=== PATIENT | male | born 1950 | race Caucasian/White ===

== ENCOUNTER 2018-12-18 07:22 | Emergency (ER) | payer SELFPAY ==
--- NOTE | 2018-12-18 07:43 | ED Physician Documentation ---
PD HPI ABD PAIN - Stated complaint Stated Complaint: ABD PAIN - Chief complaint Chief Complaint: Abd Pain - History obtained from History obtained from: Patient - History of Present Illness Timing - onset: Yesterday Timing - duration: Days (1) Timing - details: Abrupt onset, Still present Quality: Cramping, Aching, Pain Location: RUQ, Epigastric Improved by: No: Vomiting Worsened by: Eating, Moving, Palpation. No: Breathing Associated symptoms: Nausea, Vomiting. No: Fever, Diarrhea, Constipation, Dysuria, Chest pain Similar symptoms before: No diagnosis (Similar episode 2 weeks ago that lasted f or 3 days and finally improved. Interval time was without symptoms. Onset again last night and continued into today. This episode is worse pain than the prior.) Recently seen: Not recently seen Review of Systems Constitutional: reports: Myalgias. denies: Fever, Chills Nose: denies: Rhinorrhea / runny nose, Congestion Throat: denies: Sore throat Cardiac: denies: Chest pain / pressure Respiratory: denies: Cough GI: reports: Abdominal Pain, Nausea, Vomiting. denies: Abdominal Swelling, Constipation, Diarrhea, Bloody / black stool : denies: Dysuria, Frequency Skin: denies: Rash, Lesions PD PAST MEDICAL HISTORY - Past Medical History Cardiovascular: None Respiratory: None Neuro: None Endocrine/Autoimmune: None GI: None - Present Medications Home Medications: Ambulatory Orders Medication Instructions Recorded Confirmed Dicyclomine [Bentyl] 10 mg PO QID PRN #20 capsule 12/18/18 Hydrocodone/Acetaminophen [[place] 1 each PO Q6H PRN #15 tablet 12/18/18 5-325 Tablet] Ondansetron Odt [Zofran] 4 mg TL Q6H PRN #10 tablet 12/18/18 - Allergies Allergies/Adverse Reactions: Allergies Allergy/AdvReac Type Severity Reaction Status Date / Time No Known Drug Allergies Allergy Verified 12/18/18 07:38 PD ED PE NORMAL - Vitals Vital signs reviewed: Yes - General General: Alert and oriented X 3, No acute distress, Well developed/nourished - HEENT HEENT: Ears normal, Pharynx benign - Neck Neck: Supple, no meningeal sign, No adenopathy - Cardiac Cardiac: RRR, No murmur - Respiratory Respiratory: Clear bilaterally - Abdomen Abdomen: Normal bowel sounds, Soft, Non distended, No organomegaly, Other (tender epigastric to RUQ area with positive Muprhy's sign. No rebound nor percussion tenderness. ) - Male Male : Deferred - Rectal Rectal: Deferred - Back Back: No CVA TTP - Derm Derm: Normal color, Warm and dry - Neuro Neuro: Alert and oriented X 3, No motor deficit, Normal speech Results - Vitals Vitals: Vital Signs - 24 hr 12/18/18 12/18/18 12/18/18 07:34 10:00 11:11 Temperature 36.8 C Heart Rate 62 67 65 Respiratory 16 18 18 Rate Blood Pressure 164/83 H 142/75 H 123/58 L O2 Saturation 98 95 100 Oxygen O2 Source Room air - Labs Labs: Laboratory Tests 12/18/18 12/18/18 12/18/18 07:55 07:55 09:24 WBC 12.2 H RBC 4.39 L Hgb 12.3 L Hct 38.5 L MCV 87.7 MCH 28.0 MCHC 31.9 L RDW 13.3 Plt Count 209 MPV 10.0 Neut # (Auto) 10.7 H Lymph # (Auto) 0.8 L [place] # (Auto) 0.7 Eos # (Auto) 0.0 Baso # (Auto) 0.0 Absolute Nucleated RBC 0.00 Nucleated RBC % 0.0 Sodium 134 L Potassium 3.4 L Chloride 103 Carbon Dioxide 22 Anion Gap 9.0 BUN 20 Creatinine 0.6 Estimated GFR (MDRD) 135 Glucose 193 H Calcium 9.0 Total Bilirubin 1.5 H AST 21 ALT 20 Alkaline Phosphatase 70 Total Protein 7.5 Albumin 3.8 Globulin 3.7 Albumin/Globulin Ratio 1.0 Lipase 31 Urine Color YELLOW Urine Clarity CLEAR Urine pH 7.0 Ur Specific [place] 1.010 Urine Protein NEGATIVE Urine Glucose (UA) 500 H Urine Ketones NEGATIVE Urine Occult Blood NEGATIVE Urine Nitrite NEGATIVE Urine Bilirubin NEGATIVE Urine Urobilinogen 0.2 (NORMAL) Ur Leukocyte Esterase NEGATIVE Ur Microscopic Review NOT INDICATED Urine Culture Comments NOT INDICATED - Rads (name of study) RUQ abd U/S Radiology: Prelim report reviewed, Discussed with rads (gasllstone in neck with some enlarged GB, but no wall thickening nor surrounding fluid. ), See rad report PD MEDICAL DECISION MAKING - ED course Complexity details: reviewed results, re-evaluated patient (feeling better with meds. Seems GB caused. Discussed potential of meds and home versus hospital/surgery. He would prefer trying home and seeing if improves. To return if persists/worse 1-2 days. ), considered differential, d/w patient Departure - Departure Disposition: 01 Home, Self Care Clinical Impression: Colic, biliary Condition: Stable Record reviewed to determine appropriate education?: Yes Instructions: ED Gallstone W Biliary Colic [facility]: [facility] [Provider Group] Prescriptions: Dicyclomine [Bentyl] 10 mg PO QID PRN #20 capsule PRN Reason: Abdominal Pain Hydrocodone/Acetaminophen [[place] 5-325 Tablet] 1 each PO Q6H PRN #15 tablet PRN Reason: Pain Ondansetron Odt [Zofran] 4 mg TL Q6H PRN #10 tablet PRN Reason: Nausea / Vomiting Print Language: Kazakh Comments: Stay well-hydrated. Your pain seems to be coming from gallbladder irritation and spasming related to a gallstone. Avoid fatty foods for the next several days for sure and generally ongoing. Use some ibuprofen or naproxen twice daily. To that add hydrocodone as needed for pain or alternatively dicyclomine for pain to reduce spasms. Use ondansetron if needed for nausea. Return if not improved well over the next couple of days and sooner if worse. This potentially can develop more inflammation and then infection. If the symptoms improve over the next day or 2 then just stay with the low-fat diet. If you have recurring episodes of this, you can make an appointment with the surgical center to discuss possible gallbladder removal surgery. If you have unrelieved pain or worsening the next couple of days, then return here for potential gallbladder surgery sooner. Discharge Date/Time: 12/18/18 11:12
[2018-12-18 08:08] LABS: BASOPHILS % (AUTO) 0.2 %; HGB - HEMOGLOBIN 12.3 g/dL (14.0-18.0); LYMPHOCYTES # (AUTO) 0.8 10^3/uL (1.5-3.5); LYMPHOCYTES % (AUTO) 6.6 %; MEAN CORPUSCULAR HGB CONC 31.9 g/dL (32.0-36.0); MEAN CORPUSCULAR VOLUME 87.7 fL (80.0-94.0); MONOCYTES # (AUTO) 0.7 10^3/uL (0.0-1.0); MONOCYTES % (AUTO) 5.3 %; NEUTROPHILS # (AUTO) 10.7 10^3/uL (1.5-6.6); NEUTROPHILS % (AUTO) 87.4 %; PLT - PLATELET COUNT 209 10^3/uL (130-450); RED BLOOD COUNT 4.39 10^6/uL (4.70-6.10); RED CELL DISTRIBUTION WIDTH 13.3 % (12.0-15.0); WHITE BLOOD COUNT 12.2 x10^3/uL (4.8-10.8)
[2018-12-18] MEDS ORDERED: ONDANSETRON 4 MG/2 ML VIAL IVP STA (08:14)
[2018-12-18] MEDS ORDERED: SODIUM CHLORIDE 0.9% 1,000 ML IV ONE (08:14)
[2018-12-18] MEDS ORDERED: LIDOCAINE VISCOUS 2% 15 ML UDC MM STA (08:14)
[2018-12-18] MEDS ORDERED: MORPHINE 2 MG/ML CARPUJECT IVP STA (08:14)
[2018-12-18] MEDS ORDERED: MAG HYDROX/AL HYDROX/SIMETH 30 ML UDC PO STA (08:15)
[2018-12-18 08:21] LABS: ALBUMIN 3.8 g/dL (3.2-5.5); BILIRUBIN,TOTAL 1.5 mg/dL (0.2-1.0); CREATININE 0.6 mg/dL (0.6-1.2); TOTAL PROTEIN 7.5 g/dL (6.7-8.2)
[2018-12-18 09:27] LABS: BILIRUBIN,URINE NEGATIVE (NEGATIVE); GLUCOSE, URINE (UA) 500 mg/dL (NEGATIVE); KETONES,URINE (UA) NEGATIVE (NEGATIVE); LEUKOCYTE ESTERASE, URINE NEGATIVE (NEGATIVE); NITRITE,URINE NEGATIVE (NEGATIVE); OCCULT BLOOD,URINE NEGATIVE (NEGATIVE); PROTEIN,URINE NEGATIVE (NEGATIVE); UROBILINOGEN,URINE 0.2 (NORMAL) E.U./dL (NORMAL)
[2018-12-18 09:29] LABS: CLARITY,URINE CLEAR (CLEAR)
--- NOTE | 2018-12-18 09:36 | Ultrasound Report ---
Reason: upper abd pain, onset last night;similar 3 wks ago Procedure Date: 12/18/2018 Accession Number: [id number] / [id number] Procedure: US - Abdomen Limited CPT Code: FULL RESULT: EXAM: ABDOMEN ULTRASOUND LIMITED, RUQ EXAM DATE: 12/18/2018 08:44 AM. CLINICAL HISTORY: Upper abdominal pain, onset last night; similar 3 weeks ago. COMPARISON: None. TECHNIQUE: Real-time scanning was performed with static images obtained. FINDINGS: Liver: Liver parenchyma is heterogeneous and echogenic which limits evaluation for underlying mass. In the right lobe of the liver a 0.9 cm simple appearing cyst is identified. The liver measures at least 12.9 cm. Main portal vein flow: Hepatopetal. Gallbladder: Gallbladder contains a nonmobile 2.5 cm calculus near the neck and is tender during the ultrasound examination, positive sonographic Britt's sign. There is no pericholecystic fluid or gallbladder wall thickening. The gallbladder is mildly distended. Biliary System: CBD measures 6 mm. No intrahepatic or extrahepatic ductal dilatation. Other: Right kidney measures 10.3 cm in maximal sagittal dimension and demonstrates no hydronephrosis. Subcentimeter simple appearing cysts are seen in the upper and lower poles of the right kidney. IMPRESSION: Distended gallbladder with calculus in the gallbladder neck and positive sonographic Britt sign meet ultrasound criteria for cholecystitis. Please note that there is no pericholecystic fluid or overt gallbladder wall thickening to suggest advanced cholecystitis at this time. JACQUE The call report notification system was initiated by Dr. Barrington Reddy at 09:34 AM on 12/18/2018. The above call report findings were discussed with Adrián Anne by Dr. Barrington Reddy at 09:38 AM on 12/18/2018.
[2018-12-18] MEDS ORDERED: KETOROLAC 30 MG/ML VIAL IVP STA (09:54)
[2018-12-18] MEDS ORDERED: HYDROmorphone 2 MG/ML VIAL IVP STA (09:54)
[2018-12-18 11:12] VITALS: BP 123/58
== END 2018-12-18 11:12 | disposition home or self-care (01) ==
LOC: ED 07:22
DX: K80.20 Calculus of gallbladder without cholecystitis without obstruction (principal)
CPT/HCPCS: 36415; 76705; 80053; 81003; 83690; 85025; 96361; 96374; 96375; 99283; A9270; J1170; 81001; 87086

== ENCOUNTER 2018-12-22 08:19 | Observation (INO) | payer SELFPAY ==
--- NOTE | 2018-12-22 08:47 | ED Physician Documentation ---
History of Present Illness - Stated complaint Stated Complaint: FEVER,HEADACHE,ABD PX - Chief complaint Chief Complaint: Abd Pain - History obtained from History obtained from: Patient - Additonal information Additional information: Patient is a 68-year-old male presenting with persistent right upper quadrant abdominal pain, and headache. Patient was seen here several days ago and diagnosed with gallstones and biliary colic. Patient has been taking his prescriptions including narcotic pain medication and Zofran with mild relief. Patient denies any recurrent nausea, vomiting, urinary changes, or stool changes. Patient is unclear as if he has followed up with primary care physician. Patient admits to not having insurance and having difficulty establishing care locally.Patient is also unclear if he has changed his diet.No other improving or worsening factors noted. Review of Systems Constitutional: reports: Fever, Chills GI: reports: Abdominal Pain. denies: Nausea, Vomiting, Diarrhea : denies: Dysuria Neurologic: reports: Headache PD PAST MEDICAL HISTORY - Past Medical History Cardiovascular: None Respiratory: None Neuro: None Endocrine/Autoimmune: None GI: None - Past Surgical History Past Surgical History: No - Present Medications Home Medications: Ambulatory Orders Medication Instructions Recorded Confirmed Dicyclomine [Bentyl] 10 mg PO QID PRN #20 capsule 12/18/18 Hydrocodone/Acetaminophen [[place] 1 each PO Q6H PRN #15 tablet 12/18/18 5-325 Tablet] Ondansetron Odt [Zofran] 4 mg TL Q6H PRN #10 tablet 12/18/18 - Allergies Allergies/Adverse Reactions: Allergies Allergy/AdvReac Type Severity Reaction Status Date / Time No Known Drug Allergies Allergy Verified 12/18/18 07:38 - Social History Does the pt smoke?: No Smoking Status: Never smoker - Immunizations Immunizations are current?: No PD ED PE NORMAL - Vitals Vital signs reviewed: Yes - General General: Alert and oriented X 3, No acute distress, Well developed/nourished - HEENT HEENT: Atraumatic, Moist mucous membranes - Cardiac Cardiac: RRR, No murmur - Respiratory Respiratory: No respiratory distress, Clear bilaterally - Abdomen Abdomen: Soft, Non distended. No: Non tender (Mild RUQ tenderness with positive Britt's, no guarding or rebound) - Derm Derm: Normal color, Warm and dry, No rash - Extremities Extremities: No deformity, No tenderness to palpate - Neuro Neuro: Alert and oriented X 3, No motor deficit, No sensory deficit - Psych Psych: Normal mood, Normal affect Results - Vitals Vitals: Vital Signs - 24 hr 12/22/18 12/22/18 08:39 11:23 Temperature 37.3 C 37.7 C H Heart Rate 82 61 Respiratory 18 14 Rate Blood Pressure 114/86 H 113/75 O2 Saturation 97 98 Oxygen O2 Source Room air - Labs Labs: Laboratory Tests 12/22/18 12/22/18 12/22/18 09:13 09:13 09:25 WBC 12.0 H RBC 3.97 L Hgb 11.3 L Hct 34.2 L MCV 86.1 MCH 28.5 MCHC 33.0 RDW 13.5 Plt Count 153 MPV 10.3 Neut # (Auto) 10.7 H Lymph # (Auto) 0.6 L [place] # (Auto) 0.5 Eos # (Auto) 0.0 Baso # (Auto) 0.0 Absolute Nucleated RBC 0.00 Nucleated RBC % 0.0 Sodium 130 L Potassium 3.2 L Chloride 99 L Carbon Dioxide 21 Anion Gap 10.0 BUN 17 Creatinine 0.7 Estimated GFR (MDRD) 113 Glucose 141 H Calcium 8.5 Total Bilirubin 1.5 H AST 40 ALT 45 Alkaline Phosphatase 138 H Total Protein 6.8 Albumin 3.1 L Globulin 3.7 Albumin/Globulin Ratio 0.8 L Lipase 25 Urine Color DARK YELLOW Urine Clarity CLEAR Urine pH 6.5 Ur Specific [place] 1.025 Urine Protein 100 H Urine Glucose (UA) 100 H Urine Ketones NEGATIVE Urine Occult Blood MODERATE H Urine Nitrite NEGATIVE Urine Bilirubin NEGATIVE Urine Urobilinogen >=8.0 H Ur Leukocyte Esterase NEGATIVE Urine RBC 0-5 Urine WBC 0-3 Ur Squamous Epith Cells NONE SEEN Urine Bacteria None Seen Urine Mucus Moderate Strands Ur Microscopic Review INDICATED Urine Culture Comments NOT INDICATED PD MEDICAL DECISION MAKING - ED course Complexity details: reviewed old records, reviewed results, re-evaluated patient, considered differential, d/w patient, d/w informatics consultant ED course: Patient presenting with right upper quadrant pain and other symptoms that are concerning for acute cholecystitis. Patient was seen several days ago and noted to have cholelithiasis and biliary colic. Feel less likely the patient is experiencing pancreatitis, liver disease, appendicitis, choledocholithiasis, ascending cholangitis, AAA, small bowel obstruction, diverticulitis, renal disease, UTI, but considered. Patient received IV fluids, but did not require medications while in the ED. Screening lab work obtained which is relatively similar to previous labs several days ago. Leukocytosis is similar at 12 and total bilirubin is similar 1.5. Alkaline phosphatase is doubled. Patient remains afebrile in the ED. Did briefly speak to patient access and social work regarding establishing follow-up and primary care for this patient and patient provided with primary care information and outpatient appointment scheduled for later in December. Ultrasound returned indicating possible dilated common bile duct and acute cholecystitis with cholelithiasis. At this time, feel the patient may be experiencing acute cholecystitis refractory to outpatient therapies. Discussed with general surgery, who evaluated patient in the ED and feels surgical intervention is appropriate. Patient is amenable to surgical intervention at this time. Departure - Departure Disposition: ED Transfer to [facility] Clinical Impression: Cholecystitis Condition: Fair
[2018-12-22] MEDS ORDERED: SODIUM CHLORIDE 0.9% 1,000 ML IV ONE (09:07)
[2018-12-22 09:18] LABS: BASOPHILS % (AUTO) 0.3 %; EOSINOPHILS % (AUTO) 0.2 %; HGB - HEMOGLOBIN 11.3 g/dL (14.0-18.0); LYMPHOCYTES # (AUTO) 0.6 10^3/uL (1.5-3.5); LYMPHOCYTES % (AUTO) 5.2 %; MEAN CORPUSCULAR HEMOGLOBIN 28.5 pg (27.0-31.0); MEAN CORPUSCULAR VOLUME 86.1 fL (80.0-94.0); MEAN PLATELET VOLUME 10.3 fL (7.4-11.4); MONOCYTES # (AUTO) 0.5 10^3/uL (0.0-1.0); MONOCYTES % (AUTO) 4.3 %; NEUTROPHILS # (AUTO) 10.7 10^3/uL (1.5-6.6); NEUTROPHILS % (AUTO) 89.5 %; PLT - PLATELET COUNT 153 10^3/uL (130-450); RED BLOOD COUNT 3.97 10^6/uL (4.70-6.10); RED CELL DISTRIBUTION WIDTH 13.5 % (12.0-15.0)
[2018-12-22 09:31] LABS: ALBUMIN 3.1 g/dL (3.2-5.5); BILIRUBIN,TOTAL 1.5 mg/dL (0.2-1.0); CALCIUM 8.5 mg/dL (8.5-10.3); CREATININE 0.7 mg/dL (0.6-1.2); TOTAL PROTEIN 6.8 g/dL (6.7-8.2)
[2018-12-22 09:32] LABS: ALBUMIN/GLOBULIN RATIO 0.8 (1.0-2.2)
[2018-12-22 09:40] LABS: GLUCOSE, URINE (UA) 100 mg/dL (NEGATIVE); KETONES,URINE (UA) NEGATIVE (NEGATIVE); LEUKOCYTE ESTERASE, URINE NEGATIVE (NEGATIVE); NITRITE,URINE NEGATIVE (NEGATIVE); OCCULT BLOOD,URINE MODERATE (NEGATIVE); PH,URINE 6.5 PH (5.0-7.5); PROTEIN,URINE 100 mg/dL (NEGATIVE); UROBILINOGEN,URINE >=8.0 E.U./dL (NORMAL)
[2018-12-22 09:52] LABS: BILIRUBIN,URINE NEGATIVE (NEGATIVE); CLARITY,URINE CLEAR (CLEAR); ICTOTEST,URINE NEGATIVE
[2018-12-22 09:53] LABS: BACTERIA,URINE None Seen /HPF (None Seen); MUCUS,URINE Moderate Strands; RBC,URINE 0-5 /HPF (0-5); SQUAMOUS EPITHELIAL CELL,UR NONE SEEN (<= Few)
--- NOTE | 2018-12-22 10:57 | Ultrasound Report ---
Reason: RUQ pain, history of recent gallstones Procedure Date: 12/22/2018 Accession Number: [id number] / [id number] Procedure: US - Abdomen Limited CPT Code: FULL RESULT: EXAM: ABDOMEN ULTRASOUND LIMITED, RUQ EXAM DATE: 12/22/2018 10:37 AM. CLINICAL HISTORY: RUQ pain, history of recent gallstones. COMPARISON: Right upper quadrant ultrasound 12/18/2018. TECHNIQUE: Real-time scanning was performed with static images obtained. FINDINGS: Liver: Stable mildly coarse echotexture and increased echogenicity. Right lobe 17.4 cm. A stable 1 cm right hepatic simple cysts. No other focal lesion identified. Main portal vein flow: Hepatopetal. Gallbladder: A nonmobile gallstone up to 3 cm in maximal diameter in the body/fundus. Small amount of irregular nonshadowing intraluminal debris/sludge. Interval irregular gallbladder wall thickening with hyperemia on color Doppler measuring at least 6 mm in thickness. Positive sonographic Britt sign. No pericholecystic fluid identified. Biliary System: No intrahepatic biliary dilatation identified. Limited visibility of extrahepatic ducts due to bowel gas. CHD 3.6 mm. Visualized proximal CBD likely measures up to 9 mm, previously 6 mm. Pancreas: Not well seen due to body habitus and bowel gas. Right kidney: 11 cm in length, without hydronephrosis. Other: No free fluid evident. IMPRESSION: 1. Acute cholecystitis associated with cholelithiasis. 2. Possible mildly dilated partially visualized proximal CBD. No intrahepatic ductal dilatation. 3. Mild hepatic steatosis. 4. Pancreas not well seen. RADIA
--- NOTE | 2018-12-22 13:23 | ANESTHESIA ---
Pre-Anesthesia VS, & Labs - Diagnosis acute cholecystitis - Procedure lap lori Vital Signs: Temp Pulse Resp BP Pulse Ox 37.7 C H 61 14 113/75 98 12/22/18 11:23 12/22/18 11:23 12/22/18 11:23 12/22/18 11:23 12/22/18 11:23 Height 5 ft 3.5 in Weight (kg) 73.028 kg Body Mass Index 28.0 - NPO Last Food Intake: 0700 - Lab Results Current Lab Results: Laboratory Tests 12/22/18 09:13: Sodium 130 L, Potassium 3.2 L, Chloride 99 L, Carbon Dioxide 21, Anion Gap 10.0, BUN 17, Creatinine 0.7, Estimated GFR (MDRD) 113, Glucose 141 H, Calcium 8.5, Total Bilirubin 1.5 H, AST 40, ALT 45, Alkaline Phosphatase 138 H, Total Protein 6.8, Albumin 3.1 L, Globulin 3.7, Albumin/Globulin Ratio 0.8 L, Lipase 25 12/22/18 09:13: WBC 12.0 H, RBC 3.97 L, Hgb 11.3 L, Hct 34.2 L, MCV 86.1, MCH 28.5, MCHC 33.0, RDW 13.5, Plt Count 153, MPV 10.3, Neut # (Auto) 10.7 H, Lymph # (Auto) 0.6 L, [place] # (Auto) 0.5, Eos # (Auto) 0.0, Baso # (Auto) 0.0, Absolute Nucleated RBC 0.00, Nucleated RBC % 0.0 Fish Bones: 12/22/18 09:13 12/22/18 09:13 Home Medications and Allergies dicyclomine vicodine Allergies/Adverse Reactions: Allergies Allergy/AdvReac Type Severity Reaction Status Date / Time No Known Drug Allergies Allergy Verified 12/18/18 07:38 Anes History & Medical History - Anesthetic History Anesthesia Complications: reports: No previous complications - Medical History Cardiovascular: reports: None Pulmonary: reports: None Gastrointestinal: reports: None Urinary: reports: None Neuro: reports: None Musculoskeletal: reports: None Endocrine/Autoimmune: reports: None Blood Disorders: reports: None Smoking Status: Never smoker Psychosocial: reports: No issues indicated Exam General: Alert, Oriented x3, Cooperative, No acute distress Dental: Poor dentition Mouth Openin Fingerbreadth Neck Mobility: Normal Mallampati classification: II Thyromental Distance: greater than 6 cm Respiratory: Lungs clear, Normal breath sounds, No respiratory distress, No accessory muscle use Cardiovascular: Regular rate, Normal S1, Normal S2, No murmurs Mental/Cognitive Status: Alert/Oriented X3, Normal for patient Plan Anesthesia Type: General Consent for Procedure(s) Verified and Reviewed: Yes Code Status: Attempt Resuscitation ASA classification: 2-Mild systemic disease Is this case an emergency?: No
[2018-12-22] MEDS ORDERED: BUPIVACAINE 0.5% PF 10 ML VIAL ONE (13:34)
--- NOTE | 2018-12-22 14:03 | CONSULTATION NOTE ---
Referring Provider Name of Referring Provider:: Dr. Torres Consult Date: 12/22/18 Chief Complaint - Chief Complaint Chief Complaint: Sharp postprandial right upper quadrant pain History of Present Illness - Admitted From Admitted From:: Not admittedoutpatient - History Obtained From Records Reviewed: Yes History obtained from: Patient, Dr. Torres, chart Exam Limitations: Patient is primarily Indonesian-speaking but speaks Dutch quite well - History of Present Illness HPI Comment/Other: Patient is a primarily Indonesian speaking 68-year-old male who is had a several week history of on again off again right upper quadrant pain particularly after eating fatty meals. This is been associated with nausea but no vomiting. He denies melena, hematochezia, hematemesis. His Dutch is actually quite good but he states that this manages significantly better. He has not had any ongoing weight loss. He was diagnosed with symptomatic cholelithiasis by Dr. Anne in this emergency department but sent home with a plan to follow-up for an elective cholecystectomy. Unfortunately, his gallbladder did not cooperate. He presents to emergency department with worsening right upper quadrant pain. History - Past Medical History Cardiovascular: reports: None Respiratory: reports: None Neuro: reports: None Endocrine/Autoimmune: reports: None GI: reports: None : reports: None Musculoskeletal: reports: None MRSA Hx?: No Meds/Allgy - Home Medications Home Medications: Ambulatory Orders Medication Instructions Recorded Confirmed Dicyclomine [Bentyl] 10 mg PO QID PRN #20 capsule 12/18/18 12/22/18 Hydrocodone/Acetaminophen [[place] 1 each PO Q6H PRN #15 tablet 12/18/18 12/22/18 5-325 Tablet] Ondansetron Odt [Zofran] 4 mg TL Q6H PRN #10 tablet 12/18/18 12/22/18 - Allergies Allergies/Adverse Reactions: Allergies Allergy/AdvReac Type Severity Reaction Status Date / Time No Known Drug Allergies Allergy Verified 12/18/18 07:38 Review of Systems - Constitutional Constitutional: denies: Fatigue - Eyes Eyes: denies: Pain - Ears, Nose & Throat Ears, Nose & Throat: denies: Ear pain - Cardiovascular Cariovascular: denies: Irregular heart rate, Chest pain - Respiratory Respiratory: denies: Cough - Gastrointestinal Gastrointestinal: reports: Abdominal pain, Nausea. denies: Rectal bleeding, Black stools, Bloody stools, Vomiting - Neurological Neurological: denies: General weakness, Focal weakness Exam - Vital Signs Reviewed Vital Signs: Yes Vital Signs: Vital Signs x48h Temp Pulse Resp BP Pulse Ox 12/22/18 11:23 37.7 C H 61 14 113/75 98 12/22/18 08:39 37.3 C 82 18 114/86 H 97 - Physical Exam General Appearance: positive: No acute distress Eyes Bilateral: positive: No lid inflammation, Conjunctivae nml, No scleral icterus ENT: positive: Dry mucous membranes Neck: positive: Trachea midline Respiratory: positive: Chest non-tender, No respiratory distress, Breath sounds nml Cardiovascular: positive: Regular rate & rhythm Abdomen: positive: Nml bowel sounds, No distention (But obese.), Tenderness (And right upper quadrant without significant peritoneal findings.) Extremities: positive: Non-tender, Full ROM, Nml appearance Neurologic/Psychiatric: positive: Oriented x3, Motor nml, Sensation nml, Mood/affect nml Conclusion/Plan - Diagnosis Diagnosis: Symptomatic cholelithiasisacute cholecystitis - Plan Plan: Laparoscopic cholecystectomy, possible open cholecystectomy, possible intraoperative cholangiogram, possible common bile duct exploration. The indications, procedure, alternatives including no surgery, possible risks including infection (deep or superficial), bleeding requiring transfusion (with all of its risks), common bile duct injury and were fully explained to the patient and all questions answered. I explained that following the surgery I did not want him lifting anything over 15 pounds for 6 weeks to allow for optimal healing and to decrease the likelihood that a hernia would occur. All questions were fully answered. Verbal and written consent was obtained. The patient, in preparation for surgery will be nothing by mouth, receive a soap and water shower, and receive 2 g of Ancef with induction. I asked him to contact me with any surgical questions and his concerns and he stated that he would. I asked him to let me know if there is any way we can make his say at [facility] more comfortable and he stated that he would let me know. 45 minutes of [id number] time spent with the patient, the majority of which was spent in discussion, coordination of care, and completion of the requisite paperwork Josette disclaimer: This document was created in part using voice recognition technology. Because of the inherent limitations of the system ([employer] user manual states that the licensee understands that speech recognition is a statistical process and that recognition errors are inherent in the process), occasional same sounding word substitutions and grammatical errors do occur and persist yoko pite proofreading. Please read this document for context. - Lab Results Lab results reviewed: Yes Fish Bones: 12/22/18 09:13 12/22/18 09:13 - Diagnostic Imaging Results Diagnostic Imaging Results: positive: Final report reviewed
[2018-12-22] MEDS ORDERED: cefOXitin 2 GM VIAL IV ONE (14:12)
[2018-12-22] MEDS ORDERED: BUPIVACAINE 0.5% PF 30 ML VIAL INFIL ONE (14:21)
[2018-12-22] MEDS ORDERED: LACTATED RINGERS 1,000 ML IV ONE ×2 (14:23→15:15)
[2018-12-22] MEDS ORDERED: IOTHALAMATE MEGLUMINE 50 ML VIAL ONE (15:29)
[2018-12-22] MEDS ORDERED: ROCURONIUM 50 MG/5 ML VIAL IVP ONE (17:29)
[2018-12-22] MEDS ORDERED: fentaNYL 250 MCG/5 ML VIAL IVP ONE (17:29)
[2018-12-22] MEDS ORDERED: GLYCOPYRROLATE 1 MG/5 ML VIAL IVP ONE (17:29)
[2018-12-22] MEDS ORDERED: DEXAMETHASONE 4 MG/ML VIAL IVP ONE (17:29)
[2018-12-22] MEDS ORDERED: ONDANSETRON 4 MG/2 ML VIAL IVP ONE (17:29)
[2018-12-22] MEDS ORDERED: SUCCINYLCHOLINE 200 MG/10 ML VIAL IVP ONE (17:29)
[2018-12-22] MEDS ORDERED: MIDAZOLAM 2 MG/2 ML VIAL IVP ONE (17:29)
[2018-12-22] MEDS ORDERED: NEOSTIGMINE 1 MG/1 ML 10 ML MDV IVP ONE (17:29)
[2018-12-22] MEDS ORDERED: PROPOFOL 200 MG/20 ML VIAL IVP ONE (17:29)
[2018-12-22] MEDS: fentaNYL 100 MCG/2 ML VIAL ONE ×2 (17:55→18:03)
--- NOTE | 2018-12-22 18:09 | XRAY Report ---
Reason: Cholangiogram Procedure Date: 12/22/2018 Accession Number: [id number] / [id number] Procedure: [place] - OR Cholangiogram CPT Code: FULL RESULT: EXAM: INTRAOPERATIVE CHOLANGIOGRAM EXAM DATE: 12/22/2018 05:33 PM. CLINICAL HISTORY: Cholangiogram. COMPARISONS: None. TECHNIQUE: Dr. Wray performed the procedure. Please see the operative notes for details. Fluoroscopy Time: 1 minute. Number of Images: 5. FINDINGS IMPRESSION: Fluoroscopy for procedural guidance. Please refer to operative note for details. RADIA
[2018-12-22] MEDS ORDERED: SODIUM CHLORIDE FLUSH 0.9% 10 ML SYRINGE IVP PRN (18:14)
[2018-12-22] MEDS ORDERED: ONDANSETRON 4 MG/2 ML VIAL IVP PRN (18:14)
--- NOTE | 2018-12-22 18:26 | OPERATIVE REPORT ---
Operative Report - General Admit Date: 12/22/18 Planned Procedure: Laparoscopic cholecystectomy, possible open cholecystectomy, possible intraoperative cholangiogram, possible common bile duct exploration Pre-Op Diagnosis: Symptomatic cholelithiasis-acute cholecystitis Procedure Performed: Laparoscopic cholecystectomy converted to open cholecystectomy for apparent common bile duct injury, intraoperative cholangiogram, repair common bile duct injury Intraoperative surgical consultation for assist Dr. 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 - Procedure Note Primary Surgeon: Adrián Wray MD Secondary Surgeon: Yen Boykin MD Anesthesia Provider: Tessa Sims CRNA Anesthesia Technique: General ET tube, Local (30 mL of half percent Marcaine) IV Fluids (mL): 1,500 Estimated Blood Loss (mL): 400 Drain/Tube Type: Iggy drain (19 Yi Iggy drain in the subhepatic space) Findings: Aberrant common bile duct anatomy (see intraoperative cholangiogram) Complications: Small hole in the common bile duct wall - Other Other Information/Narrative: OPERATIVE DESCRIPTION/REPORT: After verbal and written informed consent was obtained detailing the risks of infection, bleeding requiring transfusion with its risks, nerve injury, and , as well as the possibility of a colostomy, and after I met with the patient confirming the surgery, the patient was brought to the operative suite and placed supine on the operating table. Great care was taken to avoid pressure points to prevent pressure necrosis or nerve injury. Monitoring devices were applied along with TEDs and pneumatic compressive stockings (to prevent DVT). The patient received preoperative antibiotics for surgical prophylaxis. Jigar Sims CRNA sedated and anesthetized the patient for the entire procedure. The patient was prepped and draped in the usual sterile manner. A "time in" then confirmed that the patient was identified with 3 identifiers (name, date and medical record number), the history and physical was in the chart, the signed consent confirming the procedure was in the chart, the patient was in the correct position, the aforementioned prophylactic measures were in place or given, we had the correct personnel and equipment to complete the procedure and that anesthesia, surgery and nursing were given an opportunity to express any concerns. With the agreement of everyone in the room, we proceeded with the operation. The initial incision was at the umbilicus and dissection to the linea alba was completed using blunt dissection. The linea alba was grasped with a Callie and incised. In a similar manner the peritoneum was grasped and incised using Metzenbaum scissors. In this location, a 12 mm blunt tipped, balloon tipped port was placed and the balloon was inflated to keep the port in position. The abdominal cavity was insufflated with carbon dioxide to steady-state pressure of 15 mmHg. Three additional 5 mm ports were placed in standard location for laparoscopic cholecystectomy (subxiphoid and 2 right subcostal) under direct vision of the 30 degree laparoscope and without incident. The patient was then placed in reverse Trendelenburg position and was rotated slightly to their left. Markedly dense adhesions of the omentum to the gallbladder and underside of the liver were encountered. These were taken down with traction countertraction aiding the dissection with Bovie electrocautery. Once the body of the gallbladder could clearly be seen I tried to grasp it with Prestige graspers but it was too thick walled and too distended to grasp. A laparoscopic needle was inserted into the gallbladder and the gallbladder was decompressed. Even with the decompression, the gallbladder wall was exceedingly and Prestige graspers did not allow for the best purchase on the wall. Toothed graspers had to be used. The gallbladder was then retracted anteriorly and superiorly and the dissection continued towards the infundibulum. The dissection was extraordinarily difficult and hampered by dense adhesions. The duodenum was dissected off of the gallbladder using traction and countertraction as well as sweeping the duodenum down away from the gallbladder. The cystic duct was identified and slightly posterior and medial to the cyst duct the cystic artery was found. The artery was addressed first and was doubly clipped proximally and distally and transected. Additional dissection also showed the entrance of the cystic duct into the common bile duct. This was done to ensure that we obtained the critical view and did not injure the common bile duct. Once this was clearly seen, the cystic duct was doubly clipped proximally and distally and transected. With the cystic duct and artery addressed and transected I proceeded to dissect the gallbladder from the liver bed and from additional adhesions with laparoscopic cristhian due to the dense adhesions. Laterally, during the dissection a small hole was made into what clearly was a bile containing ductal structure. Immediately this prompted concern and me as the common bile duct could clearly be seen and the cystic duct was clearly seen. The location of the ductal structure was clearly anomalous and not easily explained. As such, it was incumbent upon me to obtain an intraoperative cholangiogram to define the anatomy and the injury. At this point I called for an intraoperative assistance by my partner Dr. Yen Boykin and she was kind enough to promptly come to the operating room and assist for the remainder of the case. This was attempted laparoscopically but due to its location, posteriorly and close to the liver, there was no good way to obstruct the leak of dye from the opening during the cholangiogram and the initial laparoscopic intraoperative cholangiogram was nondiagnostic. It was now clear that I would need to convert to an open procedure and a right subcostal incision was made encompassing the three 5 mm laparoscopic incisions. While my scrub nurse was obtaining the required equipment, I closed the fascia at the umbilicus using 2 [id number] 0 Vicryl sutures. The skin incision was taken down to the anterior fascia using the scalpel. The anterior fascia was incised using Bovie electrocautery and the rectus muscle was held away from the posterior fascia using a Musa clamp and incised using Bovie electrocautery. Small muscle bleeders were controlled using bovie electrocautery. The posterior fascia was incised using Bovie electrocautery and entry was gained into the abdomen without incident. This was then lengthened to the size if the skin incision using Bovie electrocautery. The gallbladder was removed from the liver bed primarily using traction and countertraction and bleeding was controlled using Bovie electrocautery. The gallbladder was sent for pathologic evaluation. This allowed me to evaluate the anatomy without the gallbladder in the way. A Fisk retractor was placed to aid in visualization. A lap sponge was placed in the gallbladder bed to aid with hemostasis. The anatomy did not look any different than it did laparoscopically but the difference with the patient open was the fact that now I could close the bile duct injury which upon visualization appeared to be a small opening in the wall of the ductal structure and not a transection. The injury was closed using 2 simple 4-0 Vicryl sutures. The clips on the cystic duct were removed and a cholangiocatheter was inserted into the cystic duct and a clip was used to hold it in place. A cholangiogram was then obtained that showed clear flow of the contrast both proximally into the liver ducts and distally into the duodenum. There was no obstruction of flow. There were no filling defects. And importantly, there was no leak of contrast from the closed bile duct injury. Also interesting was that the anatomy of the common bile duct was clearly aber rant with a "Z" pattern. This x-ray was kept to be evaluated. Now with this information, the liver bed was examined for persistent blood or bile leaks. Small bleeding sites were cauterized using Bovie electrocautery and for insurance Surgicel was obtained packed into the gallbladder bed. A 19 Yi Iggy drain was obtained and inserted through a separate stab incision in the right lower abdomen securing it to the skin using a 3-0 nylon which was Braeden sandaled about the drain. The drain was cut to fit and placed in the subhepatic space. The right upper quadrant was copiously irrigated with saline and the operative field was examined for persistent blood or bile leaks of which there were none. The posterior fascia was approximated using a 0 PDS in a running fashion, starting laterally and running to the middle where the stitch was tied. In the exactly similar manner the anterior fascia was approximated. I then injected the fasica and the skin with a total of 30 mL of 1/2% marcaine for help in controlling the postoperative pain. The skin was approximated using skin kesha at both incisions. The surgical prep was removed. Dressings were applied. The drain was placed to grenade suction. At this point a time out was performed that confirmed that all the counts were correct, the procedure that was performed, the blood loss, the urine output, the IV fluids administered, and the patients condition. Having tolerated the procedure well, the patient was subsequently extubated and taken to recovery room in good and stable condition. [employer] disclaimer: This document was created in part using voice recognition technology. Because of the inherent limitations of the system ([employer] user manual states that the licensee understands that speech recognition is a statistical process and that recognition errors are inherent in the process), occasional same sounding word substitutions and grammatical errors do occur and persist despite proofreading. Please read this document for context.
[2018-12-22] MEDS: HYDROmorphone 0.5 MG/0.5 ML SYRINGE IVP PRN ×3 (18:53→23:46)
[2018-12-22] MEDS: PANTOPRAZOLE 40 MG TABLET PO SCH (18:53)
[2018-12-22] MEDS: DEXTROSE 5%-0.9% NACL 1,000 ML IV SCH (18:53)
[2018-12-22] MEDS: HYDROcod/ACETAM 5/325 MG TABLET PO PRN (20:37)
[2018-12-22] MEDS: PIPERACILLIN/TAZOBACTAM 3.375 GM in SODIUM CHLORIDE 0.9% MINIBAG 100 ML IV SCH (23:48)
[2018-12-23] MEDS: SODIUM CHLORIDE FLUSH 0.9% 10 ML SYRINGE IVP SCH ×3 (00:06→18:51)
[2018-12-23] MEDS: HYDROmorphone 0.5 MG/0.5 ML SYRINGE IVP PRN (04:41)
[2018-12-23] MEDS: DEXTROSE 5%-0.9% NACL 1,000 ML IV SCH ×2 (04:41→15:26)
[2018-12-23 05:58] LABS: BASOPHILS % (AUTO) 0.2 %; EOSINOPHILS % (AUTO) 0.1 %; HGB - HEMOGLOBIN 9.9 g/dL (14.0-18.0); LYMPHOCYTES # (AUTO) 0.7 10^3/uL (1.5-3.5); LYMPHOCYTES % (AUTO) 6.7 %; MEAN CORPUSCULAR HEMOGLOBIN 28.5 pg (27.0-31.0); MEAN CORPUSCULAR HGB CONC 33.1 g/dL (32.0-36.0); MEAN CORPUSCULAR VOLUME 86.2 fL (80.0-94.0); MEAN PLATELET VOLUME 10.6 fL (7.4-11.4); MONOCYTES # (AUTO) 0.8 10^3/uL (0.0-1.0); MONOCYTES % (AUTO) 7.5 %; NEUTROPHILS # (AUTO) 8.9 10^3/uL (1.5-6.6); NEUTROPHILS % (AUTO) 84.5 %; PLT - PLATELET COUNT 152 10^3/uL (130-450); RED BLOOD COUNT 3.47 10^6/uL (4.70-6.10); RED CELL DISTRIBUTION WIDTH 13.7 % (12.0-15.0); WHITE BLOOD COUNT 10.6 x10^3/uL (4.8-10.8)
[2018-12-23 06:08] LABS: ALBUMIN 2.7 g/dL (3.2-5.5); ALBUMIN/GLOBULIN RATIO 0.8 (1.0-2.2); BILIRUBIN,TOTAL 0.9 mg/dL (0.2-1.0); CALCIUM 7.9 mg/dL (8.5-10.3); CREATININE 0.6 mg/dL (0.6-1.2); TOTAL PROTEIN 5.9 g/dL (6.7-8.2)
[2018-12-23] MEDS: HYDROcod/ACETAM 5/325 MG TABLET PO PRN ×3 (06:09→15:24)
[2018-12-23] MEDS: PIPERACILLIN/TAZOBACTAM 3.375 GM in SODIUM CHLORIDE 0.9% MINIBAG 100 ML IV SCH (06:11)
[2018-12-23] MEDS: PANTOPRAZOLE 40 MG TABLET PO SCH (06:43)
--- NOTE | 2018-12-23 11:57 | PROVIDER PROGRESS NOTE ---
Subjective - Prog Note Date Prog Note Date: 12/23/18 Prog Note Time: 08:30 - Subjective Pt reports feeling: Improved Subjective: Patient reports he is comfortable and tolerated a general diet without nausea. Says he only has pain when he gets out of bed or moves around. Lungs: clear bilaterally CV: RRR, Abd: soft, appropriately tender, active bowel sounds, drain with very scant bilious fluid Labs are all reassurring A/P: POD 1 after cholecystectomy for acute on chronic cholecystitis with abberrant anatomy. I will keep him one more night as he has not has any objective evidence of bowel function yet. Add an abdominal binder for comfort and walk in the halls today. Plan for discharge in the AM if he continues to make progress. Objective - Vital Signs/Intake & Output Vital Signs: Vital Signs x48h Temp Pulse Resp BP Pulse Ox 12/23/18 07:51 36.9 C 58 L 16 127/71 99 12/23/18 04:29 36.8 C 60 16 124/78 98 Intake & Output: Intake & Output 12/20/18 12/21/18 12/22/18 12/23/18 23:59 23:59 23:59 23:59 Intake Total 1000 1680 Output Total 1020 20 Balance -20 1660 - Lab Results Fish Bones: 12/23/18 05:50 12/23/18 05:50 Other Labs: Lab Results x24hrs 12/23/18 12/23/18 Range/Units 05:50 05:50 WBC 10.6 (4.8-10.8) x10^3/uL RBC 3.47 L (4.70-6.10) 10^6/uL Hgb 9.9 L (14.0-18.0) g/dL Hct 29.9 L (42.0-52.0) % MCV 86.2 (80.0-94.0) fL MCH 28.5 (27.0-31.0) pg MCHC 33.1 (32.0-36.0) g/dL RDW 13.7 (12.0-15.0) % Plt Count 152 (130-450) 10^3/uL MPV 10.6 (7.4-11.4) fL Neut # (Auto) 8.9 H (1.5-6.6) 10^3/uL Lymph # (Auto) 0.7 L (1.5-3.5) 10^3/uL Webb # (Auto) 0.8 (0.0-1.0) 10^3/uL Eos # (Auto) 0.0 (0.0-0.7) 10^3/uL Baso # (Auto) 0.0 (0.0-0.1) 10^3/uL Absolute Nucleated RBC 0.00 x10^3/uL Nucleated RBC % 0.0 /100WBC Sodium 133 L (135-145) mmol/L Potassium 3.7 (3.5-5.0) mmol/L Chloride 102 (101-111) mmol/L Carbon Dioxide 24 (21-32) mmol/L Anion Gap 7.0 (6-13) BUN 12 (6-20) mg/dL Creatinine 0.6 (0.6-1.2) mg/dL Estimated GFR (MDRD) 135 (>89) Glucose 156 H (70-100) mg/dL Calcium 7.9 L (8.5-10.3) mg/dL Total Bilirubin 0.9 (0.2-1.0) mg/dL AST 66 H (10-42) IU/L ALT 63 H (10-60) IU/L Alkaline Phosphatase 140 H (42-121) IU/L Total Protein 5.9 L (6.7-8.2) g/dL Albumin 2.7 L (3.2-5.5) g/dL Globulin 3.2 (2.1-4.2) g/dL Albumin/Globulin Ratio 0.8 L (1.0-2.2)
[2018-12-23] MEDS: POLYETHYLENE GLYCOL 3350 17 GM PACKET PO SCH (12:35)
[2018-12-23] MEDS ORDERED: GLYCERIN ADULT SUPP PR ONE (16:43)
[2018-12-24] MEDS: HYDROcod/ACETAM 5/325 MG TABLET PO PRN (00:36)
[2018-12-24] MEDS: DEXTROSE 5%-0.9% NACL 1,000 ML IV SCH (00:39)
[2018-12-24] MEDS: SODIUM CHLORIDE FLUSH 0.9% 10 ML SYRINGE IVP SCH ×2 (05:24→10:01)
[2018-12-24] MEDS: PANTOPRAZOLE 40 MG TABLET PO SCH (06:53)
[2018-12-24 07:55] VITALS: BP 135/74
[2018-12-24] MEDS: POLYETHYLENE GLYCOL 3350 17 GM PACKET PO SCH (09:59)
--- NOTE | 2018-12-24 10:11 | Discharge Plan ---
Discharge Plan Problem Reviewed?: Yes Disposition: Home, Self Care Condition: Good Prescriptions: HYDROcod/ACETAM 5/325 [[place] 5/325] 1 tab PO Q4HR PRN #20 tablet PRN Reason: Pain Diet: Regular Activity Restrictions: Do not drive or lift more than 5 pounds until follow up appointment. Shower Restrictions: No Driving Restrictions: Yes Weight Bearing: Full Weight Instruction Topics: Acetaminophen Hydrocodone tablets or capsules, Constipation, Cholecystectomy Open Dc, Diet High Fiber Dc Plan of Treatment: Discharge home today in the care of family. Leave the drain in place. This will be removed in the office by Dr. Wray. Assessment: Much improved status post cholecystectomy No Smoking: If you smoke, Please STOP! Call for help. Follow-up with: Adrián Wray MD [Provider Admit Priv/Credential] -
--- NOTE | 2018-12-24 10:30 | DISCHARGE SUMMARY ---
"Discharge Summary Admit Date: 12/22/18 Discharge Date: 12/24/18 Discharging Provider: Lucretia Code Status: Attempt Resuscitation Condition at Discharge: Good Discharge Disposition: 01 Home, Self Care - DIAGNOSES Admission Diagnoses: Acute on chronic cholecystits and cholelilthiasis Discharge Diagnoses with Status of Each Condition: Acute cholecystitis and cholelithiasis status post cholecystecomy - much improved - HPI History of Present Illness: Mr. Cisneros is a pleasant gentleman who presented on the date of admission for laparoscopic cholecystectomy.At the time of operation, he was noted to have apparent ductal anatomy and required an open procedure.Today he is feeling much better. He has tolerated a regular diet and denies any nausea. Hydrocodone seems to be working well for pain control and he has walked the halls unassisted. - CONSULTS | PROCEDURES Procedures: Laparoscopic cholecystectomy converted to open cholecystectomy - HOSPITAL COURSE Hospital Course: The patient was admitted and underwent a mildly eventful cholecystectomy. The laparoscopic procedure was converted to an open procedure and the patient was admitted for pain control and observation postoperatively.On postoperative day 1, he had not been out of bed much nor had walked at all.He was not complaining of much pain except with movement. Overnight, he has tolerated his regular diet and is walking the halls completely unassisted. He is actually quite difficult to keep up with. He is being discharged to his home in the care of his family. He will follow-up with Dr. Wray later this week. Due to the complexity of the procedure, the drain will stay in place and Dr. Wray will remove it in the office. - ALLERGIES Allergies/Adverse Reactions: Allergies Allergy/AdvReac Type Severity Reaction Status Date / Time No Known Drug Allergies Allergy Verified 12/18/18 07:38 - MEDICATIONS Home Medications: Ambulatory Orders Medication Instructions Recorded Confirmed Dicyclomine [Bentyl] 10 mg PO QID PRN #20 capsule 12/18/18 12/22/18 Ondansetron Odt [Zofran Odt] 4 mg TL Q6H PRN #10 tablet 12/18/18 12/22/18 HYDROcod/ACETAM 5/325 [[place] 5/325] 1 tab PO Q4HR PRN #20 tablet 12/24/18 Polyethylene Glycol 3350 [Miralax] 17 gm PO DAILY packet 12/24/18 - PHYSICAL EXAM AT DISCHARGE General Appearance: positive: No acute distress, Alert Eyes Bilateral: positive: Normal inspection, PERRL, EOMI ENT: positive: ENT inspection nml, Pharynx nml, No signs of dehydration Neck: positive: Nml inspection, No JVD Respiratory: positive: Chest non-tender, Breath sounds nml Cardiovascular: positive: Regular rate & rhythm, No murmur Abdomen: positive: Nml bowel sounds, Other (Appropriately tender to palpation. Wounds are clean and dry.PETRA drainage is scant but with a bilious tinge.) Skin: positive: Color nml Extremities: positive: Non-tender Neurologic/Psychiatric: positive: Oriented x3, CN's nml (2-12) - LABS Result Diagrams: 12/23/18 05:50 12/23/18 05:50 - DIAGNOSTIC IMAGING Diagnostic Imaging Results: Final report reviewed - QUALITY (Female Hip Fx Only) Was patient sent home on osteoporosis medication?: No - FOLLOW UP Follow Up: Follow-up with Dr. Wray later this week in his office for drain removal. - TIME SPENT Time Spent in Discharge (Minutes): 25"
[2018-12-24] MEDS ORDERED: ACETAMINOPHEN 325 MG TABLET PO PRN (11:40)
== END 2018-12-24 13:38 | disposition home or self-care (01) ==
LOC: ED 08:19 → SDS 12:10 → MS2 18:32
PROVIDERS: ADMIT Surgery; ATTEND Surgery
PROC: 0FJ44ZZ Inspection of Gallbladder, Percutaneous Endoscopic Approach (ICD-10-PCS; principal; 2018-12-22 13:00)
PROC: 0FT40ZZ Resection of Gallbladder, Open Approach (ICD-10-PCS; 2018-12-22 13:00)
DX: K80.12 Calculus of gallbladder with acute and chronic cholecystitis without obstruction (principal); K82.A1 Gangrene of gallbladder in cholecystitis; K82.8 Other specified diseases of gallbladder; Q44.5 Other congenital malformations of bile ducts; K91.71 Accidental puncture and laceration of a digestive system organ or structure during a digestive system procedure; Y83.6 Removal of other organ (partial) (total) as the cause of abnormal reaction of the patient, or of later complication, without mention of misadventure at the time of the procedure; Y92.234 Operating room of hospital as the place of occurrence of the external cause; Z53.31 Laparoscopic surgical procedure converted to open procedure
CPT/HCPCS: 36415; 47605; 51701; 74300; 76705; 80053; 81001; 83690; 85025; 96360; 96361; 99283; 99284; A9270; G0378; J0330; J1170; J3010; J7120; Q9961; 81003; 87086

== ENCOUNTER 2018-12-26 12:17 | Outpatient (CLI) | payer SELFPAY ==
[2018-12-26 13:08] LABS: BASOPHILS # (AUTO) 0.1 10^3/uL (0.0-0.1); BASOPHILS % (AUTO) 0.4 %; EOSINOPHILS % (AUTO) 0.3 %; LYMPHOCYTES % (AUTO) 8.4 %; MEAN CORPUSCULAR HEMOGLOBIN 28.6 pg (27.0-31.0); MEAN CORPUSCULAR HGB CONC 33.1 g/dL (32.0-36.0); MEAN CORPUSCULAR VOLUME 86.2 fL (80.0-94.0); MEAN PLATELET VOLUME 9.8 fL (7.4-11.4); MONOCYTES # (AUTO) 0.8 10^3/uL (0.0-1.0); MONOCYTES % (AUTO) 6.3 %; NEUTROPHILS # (AUTO) 10.1 10^3/uL (1.5-6.6); NEUTROPHILS % (AUTO) 83.7 %; PLT - PLATELET COUNT 372 10^3/uL (130-450); WHITE BLOOD COUNT 12.1 x10^3/uL (4.8-10.8)
[2018-12-26 13:36] LABS: ALBUMIN 3.3 g/dL (3.2-5.5); ALBUMIN/GLOBULIN RATIO 0.8 (1.0-2.2); BILIRUBIN,TOTAL 0.7 mg/dL (0.2-1.0); CALCIUM 9.1 mg/dL (8.5-10.3); CREATININE 0.6 mg/dL (0.6-1.2); TOTAL PROTEIN 7.2 g/dL (6.7-8.2)
== END 2018-12-26 12:18 | disposition home or self-care (01) ==
LOC: LAB 12:17
PROVIDERS: ATTEND Surgery
DX: Z48.815 Encounter for surgical aftercare following surgery on the digestive system (principal)
CPT/HCPCS: 36415; 80053; 85025

== ENCOUNTER 2018-12-29 10:08 | Emergency (ER) | payer SELFPAY ==
[2018-12-29 12:02] LABS: BASOPHILS % (AUTO) 0.4 %; EOSINOPHILS # (AUTO) 0.1 10^3/uL (0.0-0.7); EOSINOPHILS % (AUTO) 0.5 %; HGB - HEMOGLOBIN 11.5 g/dL (14.0-18.0); LYMPHOCYTES # (AUTO) 1.3 10^3/uL (1.5-3.5); LYMPHOCYTES % (AUTO) 13.7 %; MEAN CORPUSCULAR HEMOGLOBIN 28.1 pg (27.0-31.0); MEAN CORPUSCULAR HGB CONC 32.1 g/dL (32.0-36.0); MEAN CORPUSCULAR VOLUME 87.5 fL (80.0-94.0); MONOCYTES # (AUTO) 0.7 10^3/uL (0.0-1.0); MONOCYTES % (AUTO) 7.3 %; NEUTROPHILS # (AUTO) 7.5 10^3/uL (1.5-6.6); NEUTROPHILS % (AUTO) 77.2 %; PLT - PLATELET COUNT 510 10^3/uL (130-450); RED BLOOD COUNT 4.09 10^6/uL (4.70-6.10); WHITE BLOOD COUNT 9.7 x10^3/uL (4.8-10.8)
--- NOTE | 2018-12-29 12:05 | ED Physician Documentation ---
PD HPI WOUND RECHECK - Stated complaint Stated Complaint: POST OP COMP - Chief complaint Chief Complaint: Wound - Histroy obtained from History obtained from: Patient - History of Present Illness Location: Other (He is a week out from a complicated cholecystectomy that required conversion to open with I guess some complicated biliary anatomy. He has a PETRA drain in place and complains of pain that is persistent. Not necessarily getting worse but waxing and waning. If the right upper quadrant sharp and burning pain that radiates to the right shoulder. He vacillates when asked him if there is a fever associated with this. He says he is moving his bowels and denies nausea. The pain gets immediately worse after eating or drinking anything. He is been taking Tylenol which is not particularly h elpful.) Review of Systems Ten Systems: 10 systems reviewed and negative Constitutional: denies: Fever (??), Chills Nose: denies: Rhinorrhea / runny nose, Congestion Cardiac: denies: Chest pain / pressure, Palpitations Respiratory: denies: Dyspnea, Cough PD PAST MEDICAL HISTORY - Past Medical History Cardiovascular: None Respiratory: None Neuro: None Endocrine/Autoimmune: None GI: None : None Musculoskeletal: None - Past Surgical History Past Surgical History: No General: Cholecystectomy - Present Medications Home Medications: Ambulatory Orders Medication Instructions Recorded Confirmed Dicyclomine [Bentyl] 10 mg PO QID PRN #20 capsule 12/18/18 12/22/18 Ondansetron Odt [Zofran Odt] 4 mg TL Q6H PRN #10 tablet 12/18/18 12/22/18 HYDROcod/ACETAM 5/325 [[place] 5/325] 1 tab PO Q4HR PRN #20 tablet 12/24/18 Polyethylene Glycol 3350 [Miralax] 17 gm PO DAILY packet 12/24/18 Omeprazole 20 mg PO DAILY #30 capsule. 12/29/18 Oxycodone HCl/Acetaminophen 1 - 2 each PO Q6H PRN #14 tablet 12/29/18 [Percocet 5-325 mg Tablet] - Allergies Allergies/Adverse Reactions: Allergies Allergy/AdvReac Type Severity Reaction Status Date / Time No Known Drug Allergies Allergy Verified 12/29/18 10:21 - Social History Does the pt smoke?: No Smoking Status: Never smoker Does the pt drink ETOH?: No Does the pt have substance abuse?: No - Immunizations Immunizations are current?: No PD ED PE NORMAL - Vitals Vital signs reviewed: Yes - General General: Alert and oriented X 3, No acute distress - Abdomen Abdomen: Other (Right upper quadrant incision is clean dry and intact without evidence of infection, as are the laparoscopic incisions. There is a PETRA drain in place with about 10 mL of green clear fluid in it. He says he last emptied it yesterday. There is modest right upper quadrant tenderness but no diffuse tenderness or surgical signs.) - Back Back: No CVA TTP, No spinal TTP - Neuro Neuro: Alert and oriented X 3, Normal speech Results - Vitals Vitals: Vital Signs - 24 hr 12/29/18 12/29/18 10:17 10:45 Temperature 36.5 C 37.2 C Heart Rate 75 66 Respiratory 14 15 Rate Blood Pressure 145/97 H 128/86 H O2 Saturation 97 95 Oxygen O2 Source Room air - Labs Labs: Laboratory Tests 12/29/18 12/29/18 11:54 11:54 WBC 9.7 RBC 4.09 L Hgb 11.5 L Hct 35.8 L MCV 87.5 MCH 28.1 MCHC 32.1 RDW 14.0 Plt Count 510 H MPV 9.0 Neut # (Auto) 7.5 H Lymph # (Auto) 1.3 L Haines # (Auto) 0.7 Eos # (Auto) 0.1 Baso # (Auto) 0.0 Absolute Nucleated RBC 0.00 Nucleated RBC % 0.0 Sodium 133 L Potassium 4.2 Chloride 97 L Carbon Dioxide 24 Anion Gap 12.0 BUN 22 H Creatinine 0.6 Estimated GFR (MDRD) 135 Glucose 109 H Calcium 9.0 Total Bilirubin 0.9 AST 17 ALT 35 Alkaline Phosphatase 241 H Total Protein 7.7 Albumin 3.5 Globulin 4.2 Albumin/Globulin Ratio 0.8 L Lipase 34 PD MEDICAL DECISION MAKING - ED course ED course: 68-year-old gentleman with uncontrolled pain status post open cholecystectomy. He is at most modestly tender without surgical signs. His white count is reassuring. Note made of elevated alkaline phosphatase which is new and this was discussed with his surgeon, Dr. Wray who felt that it was inconsequential given the lack of other elevated liver enzymes and recommends more aggressive pain control than simple Tylenol and also adding a PPI and to follow-up in the office. Departure - Departure Disposition: Home, Self Care Clinical Impression: Post-operative pain Condition: Good Record reviewed to determine appropriate education?: Yes Health Concerns: pain after open gallbladder surgery Plan of Treatment: Increase in pain medications as well as something to decrease the burning in your stomach. Follow-up with Dr. Wray on Tuesday as scheduled. Return if worse especially if pain gets even worse or if you run a fever. Care Goals: pain control Assessment: as above Instructions: ED Post Op Pain Prescriptions: Omeprazole 20 mg PO DAILY #30 capsule. Oxycodone HCl/Acetaminophen [Percocet 5-325 mg Tablet] 1 - 2 each PO Q6H PRN #14 tablet PRN Reason: pain
[2018-12-29 12:25] LABS: ALBUMIN 3.5 g/dL (3.2-5.5); ALBUMIN/GLOBULIN RATIO 0.8 (1.0-2.2); BILIRUBIN,TOTAL 0.9 mg/dL (0.2-1.0); CREATININE 0.6 mg/dL (0.6-1.2); TOTAL PROTEIN 7.7 g/dL (6.7-8.2)
[2018-12-29] MEDS ORDERED: MAG HYDROX/AL HYDROX/SIMETH 30 ML UDC PO STA (12:27)
[2018-12-29] MEDS ORDERED: LIDOCAINE VISCOUS 2% 15 ML UDC MM STA (12:27)
[2018-12-29] MEDS ORDERED: IBUPROFEN 800 MG TABLET PO STA (12:27)
[2018-12-29 13:23] VITALS: BP 125/79
== END 2018-12-29 13:32 | disposition home or self-care (01) ==
LOC: ED 10:08
DX: G89.18 Other acute postprocedural pain (principal)
CPT/HCPCS: 36415; 80053; 83690; 85025; 99283; A9270

== ENCOUNTER 2019-01-03 12:18 | Outpatient (CLI) | payer SELFPAY ==
[2019-01-03 12:39] LABS: BASOPHILS # (AUTO) 0.1 10^3/uL (0.0-0.1); BASOPHILS % (AUTO) 0.5 %; EOSINOPHILS # (AUTO) 0.1 10^3/uL (0.0-0.7); EOSINOPHILS % (AUTO) 0.5 %; HGB - HEMOGLOBIN 11.1 g/dL (14.0-18.0); LYMPHOCYTES % (AUTO) 9.8 %; MEAN CORPUSCULAR HEMOGLOBIN 28.3 pg (27.0-31.0); MEAN CORPUSCULAR HGB CONC 33.2 g/dL (32.0-36.0); MEAN CORPUSCULAR VOLUME 85.2 fL (80.0-94.0); MEAN PLATELET VOLUME 8.1 fL (7.4-11.4); MONOCYTES # (AUTO) 0.8 10^3/uL (0.0-1.0); MONOCYTES % (AUTO) 7.8 %; NEUTROPHILS # (AUTO) 8.4 10^3/uL (1.5-6.6); PLT - PLATELET COUNT 569 10^3/uL (130-450); RED BLOOD COUNT 3.92 10^6/uL (4.70-6.10); RED CELL DISTRIBUTION WIDTH 13.4 % (12.0-15.0); WHITE BLOOD COUNT 10.4 x10^3/uL (4.8-10.8)
[2019-01-03 12:51] LABS: ALBUMIN 3.3 g/dL (3.2-5.5); ALBUMIN/GLOBULIN RATIO 0.8 (1.0-2.2); BILIRUBIN,TOTAL 0.5 mg/dL (0.2-1.0); CALCIUM 8.9 mg/dL (8.5-10.3); CREATININE 0.6 mg/dL (0.6-1.2); TOTAL PROTEIN 7.4 g/dL (6.7-8.2)
[2019-01-03 17:02] LABS: BASOPHILS # (AUTO) 0.1 10^3/uL (0.0-0.1); BASOPHILS % (AUTO) 0.5 %; EOSINOPHILS % (AUTO) 0.2 %; HGB - HEMOGLOBIN 11.2 g/dL (14.0-18.0); LYMPHOCYTES # (AUTO) 0.9 10^3/uL (1.5-3.5); LYMPHOCYTES % (AUTO) 9.2 %; MEAN CORPUSCULAR HEMOGLOBIN 28.2 pg (27.0-31.0); MEAN CORPUSCULAR HGB CONC 33.3 g/dL (32.0-36.0); MEAN CORPUSCULAR VOLUME 84.6 fL (80.0-94.0); MEAN PLATELET VOLUME 8.2 fL (7.4-11.4); MONOCYTES # (AUTO) 0.8 10^3/uL (0.0-1.0); MONOCYTES % (AUTO) 8.3 %; NEUTROPHILS # (AUTO) 7.9 10^3/uL (1.5-6.6); NEUTROPHILS % (AUTO) 81.4 %; PLT - PLATELET COUNT 589 10^3/uL (130-450); RED BLOOD COUNT 3.97 10^6/uL (4.70-6.10); RED CELL DISTRIBUTION WIDTH 13.3 % (12.0-15.0); WHITE BLOOD COUNT 9.8 x10^3/uL (4.8-10.8)
[2019-01-03 17:17] LABS: ALBUMIN 3.1 g/dL (3.2-5.5); ALBUMIN/GLOBULIN RATIO 0.7 (1.0-2.2); CALCIUM 8.8 mg/dL (8.5-10.3); CREATININE 0.5 mg/dL (0.6-1.2); TOTAL PROTEIN 7.4 g/dL (6.7-8.2)
== END 2019-01-03 12:19 | disposition home or self-care (01) ==
LOC: LAB 12:18
PROVIDERS: ATTEND Surgery
DX: K83.8 Other specified diseases of biliary tract (principal)
CPT/HCPCS: 36415; 80053; 85025

== ENCOUNTER 2019-01-04 13:35 | Outpatient (CLI) | payer SELFPAY ==
[2019-01-04] MEDS ORDERED: BUPIVACAINE 0.5% PF 10 ML VIAL ONE (17:17)
[2019-01-04] MEDS ORDERED: SUGAMMADEX 200 MG/2 ML VIAL IVP ONE (17:17)
--- NOTE | 2019-01-05 07:30 | MRI Report ---
Reason: R/O LEAK Procedure Date: 01/04/2019 Accession Number: [id number] / [id number] Procedure: MRI - MRCP W/O CPT Code: FULL RESULT: EXAM: MR ABDOMEN WITHOUT CONTRAST (MR CHOLANGIOPANCREATOGRAPHY) EXAM DATE: 01/04/2019 03:01 PM. CLINICAL HISTORY: R/O LEAK. Abdominal pain. Recent cholecystectomy. COMPARISON: OR CHOLANGIOGRAM 12/22/2018 4:28 PM ABDOMEN LIMITED 12/22/2018 10:05 AM. TECHNIQUE: Multiplanar breath-hold T1 and T2 sequences obtained through the abdomen on an MR scanner. Dedicated 2D and 3D MRCP sequences obtained through the biliary and pancreatic ducts. No intravenous contrast given. Moderate patient motion artifact. FINDINGS: Lung Bases: Small right pleural effusion. Right hemidiaphragm elevation. Liver: Right liver lobe is displaced to the left by a large subcapsular T2 hyperintense collection compatible with biloma measuring 9.1 cm transverse by 17.5 cm AP by 23 cm craniocaudal, 1.9 L. A small amount of fluid extends near hepatic flexure of colon, however does not freely extend into pericolic gutter. Large biloma communicates with a similar collection/biloma in gallbladder fossa by a thin tract anteriorly on series 901, image 14. Subcapsular collection protruding into gallbladder fossa measures 9.5 x 3 x 5.1 cm. Small liver dome cyst. No intrahepatic biliary ductal dilatation. CBD: The extrahepatic ducts appear normal. The CBD is 6 mm in diameter. Gallbladder: Surgically absent. Pancreas: The pancreas appears normal with no mass. The pancreatic duct measures 1 mm in diameter and appears normal with no stone or stricture. Spleen: The spleen appears normal. Kidneys and Adrenals: There is a 2.4 cm exophytic medial left lower renal lesion with decreased T2 signal. 6 mm left lower renal cyst. Probable 5 mm right lower renal cyst. The adrenals appear normal. Bowel: The small bowel and colon appear normal with no inflammation or obstruction. Normal appendix. Retroperitoneum: The retroperitoneal structures appear normal with no mass or lymphadenopathy. IMPRESSION: 1. Recent cholecystectomy with very large biloma, predominantly lateral to right liver lobe. Biloma has significant mass-effect upon liver, displacing the liver to the left and elevating right hemidiaphragm. Biloma has a thin tract anteriorly that has a second smaller component protruding into gallbladder fossa. 2. Normal 6 mm common bile duct. No cholelithiasis demonstrated. 3. Small right pleural effusion. 4. A 2.4 cm indeterminate, exophytic medial left lower renal lesion with decreased T2 signal. Question hemorrhagic cyst. Recommend renal ultrasound to differentiate cyst from solid mass. Exam discussed with Dr. Wray on day of study at approximately 4 PM. RADIA
== END 2019-01-04 13:36 | disposition home or self-care (01) ==
LOC: DI 13:35
PROVIDERS: ATTEND Surgery
DX: K83.8 Other specified diseases of biliary tract (principal); Z90.49 Acquired absence of other specified parts of digestive tract; J90 Pleural effusion, not elsewhere classified; N28.1 Cyst of kidney, acquired
CPT/HCPCS: 74181

== ENCOUNTER 2019-01-04 16:40 | Day surgery (SDC) | payer SELFPAY ==
[2019-01-04] MEDS ORDERED: CEFAZOLIN SODIUM IN 0.9 % NACL 2 GM/100 ML BAG IV ONE (17:23)
--- NOTE | 2019-01-04 17:23 | ANESTHESIA ---
Pre-Anesthesia VS, & Labs - Diagnosis Bilioma - Procedure I&D bilioma Vital Signs: Temp Pulse Resp BP Pulse Ox 37.0 C 101 H 16 144/88 H 95 01/04/19 17:02 01/04/19 17:02 01/04/19 17:02 01/04/19 17:02 01/04/19 17:02 Height 5 ft 4 in Weight (kg) 70.5 kg Body Mass Index 30.9 - NPO >8 hours Home Medications and Allergies Allergies/Adverse Reactions: Allergies Allergy/AdvReac Type Severity Reaction Status Date / Time No Known Drug Allergies Allergy Verified 12/29/18 10:21 Anes History & Medical History - Anesthetic History Anesthesia Complications: reports: No previous complications (language line used for interpretation) - Medical History Cardiovascular: reports: None Pulmonary: reports: None Gastrointestinal: reports: None Urinary: reports: None Neuro: reports: None Musculoskeletal: reports: None Endocrine/Autoimmune: reports: None Blood Disorders: reports: None Smoking Status: Never smoker - Surgical History General: Cholecystectomy Exam General: Alert, Oriented x3, Cooperative, No acute distress Dental: WNL Mouth Openin Fingerbreadth Neck Mobility: Normal Mallampati classification: II Thyromental Distance: greater than 6 cm Respiratory: Lungs clear, Normal breath sounds, No respiratory distress, No accessory muscle use Cardiovascular: Regular rate, Normal S1, Normal S2, No murmurs Mental/Cognitive Status: Alert/Oriented X3, Normal for patient Plan Anesthesia Type: General Consent for Procedure(s) Verified and Reviewed: Yes Code Status: Attempt Resuscitation ASA classification: 2-Mild systemic disease Is this case an emergency?: Yes
--- NOTE | 2019-01-04 17:32 | HISTORY & PHYSICAL EXAMINATION ---
HPI - Admitted From Admitted from: Other (Patient was in MRI at [facility] and results prompted outpatient procedure.) - History Obtained From History obtained from: Patient, Other (Patient is well known to me.) Exam limitations: Language barrier (Tranlating iPad used (Tiffani).) - History of Present Illness Severity at the worst: reports: Moderate Pain Quality: reports: Sharp Worsened by: reports: Inspiration (Patient is well-known to me as I performed his laparoscopic cholecystectomy that converted to an open cholecystectomy for gangrenous cholecystitis along with common bile duct injury which was closed in a drain was placed. The patient had been doing moderately well and the drainage from his subhepatic Iggy drain had been decreasing. An MRCP was ordered to e nsure there was no leak prior to removal of the drain. The unexpected finding today was that of a extraordinarily large biloma measuring approximately 2 L. In retrospect this finding is consistent with his complaint of right shoulder pain and pressure.) PMH/PSH - Past Medical History Cardiovascular: positive: None Respiratory: positive: None Neuro: positive: None Endocrine/Autoimmune: positive: None GI: positive: None : positive: None Musculoskeletal: positive: None MRSA Hx?: No - Past Surgical History General: positive: Cholecystectomy Social & Family Hx - Social History Does the pt smoke?: No Smoking Status: Never smoker Does the pt drink ETOH?: No Does the pt have substance abuse?: No Meds/Allgy - Home Medications Home Medications: Ambulatory Orders Medication Instructions Recorded Confirmed Dicyclomine [Bentyl] 10 mg PO QID PRN #20 capsule 12/18/18 12/22/18 Ondansetron Odt [Zofran Odt] 4 mg TL Q6H PRN #10 tablet 12/18/18 12/22/18 HYDROcod/ACETAM 5/325 [Bucks 5/325] 1 tab PO Q4HR PRN #20 tablet 12/24/18 Polyethylene Glycol 3350 [Miralax] 17 gm PO DAILY packet 12/24/18 Omeprazole 20 mg PO DAILY #30 capsule. 12/29/18 Oxycodone HCl/Acetaminophen 1 - 2 each PO Q6H PRN #14 tablet 12/29/18 [Percocet 5-325 mg Tablet] - Allergies Allergies/Adverse Reactions: Allergies Allergy/AdvReac Type Severity Reaction Status Date / Time No Known Drug Allergies Allergy Verified 12/29/18 10:21 Review of Systems - Constitutional Constitutional: reports: Fatigue, Chills, Poor appetite. denies: Fever - Eyes Eyes: denies: Pain - Ears, Nose & Throat Ears, Nose & Throat: denies: Ear pain - Cardiovascular Cariovascular: denies: Irregular heart rate, Palpitations, Chest pain - Respiratory Respiratory: denies: Cough, Sputum production, Wheezing - Gastrointestinal Gastrointestinal: reports: Abdominal pain, Nausea. denies: Rectal bleeding, Black stools, Bloody stools Exam - Vital Signs Reviewed Vital Signs: Yes Vital Signs: Vital Signs x48h Temp Pulse Resp BP Pulse Ox 01/04/19 17:02 37.0 C 101 H 16 144/88 H 95 - Physical Exam General Appearance: positive: Mild distress Eyes Bilateral: positive: No lid inflammation, Conjunctivae nml, No scleral icterus ENT: positive: No signs of dehydration Neck: positive: Trachea midline Respiratory: positive: Chest non-tender, No respiratory distress, Breath sounds nml Cardiovascular: positive: Regular rate & rhythm Abdomen: positive: Nml bowel sounds, Tenderness (At the incision.) Skin: positive: Color nml Extremities: positive: Non-tender, Full ROM, Nml appearance Neurologic/Psychiatric: positive: Oriented x3, Motor nml, Sensation nml, Mood/affect nml Results - Lab Results Lab results reviewed: Yes - Diagnostic Imaging Results Diagnostic Imaging Results: positive: Read independently Diagnostic Imaging Results Comments: At this time a final rating has not been posted but this clearly shows a large biloma measuring approximately 2 L in the right upper quadrant in the suprahepatic space as well as infrahepatic space. Sepsis Event Note (H) - Evaluation Current Stage of Sepsis: Ruled out Impression/Plan - Problem List Problem List: Semiurgent return to the operating room for drainage of this large biloma. The indications, procedure, alternatives, and possible complications including but not limited to infection bleeding were fully explained to the patient and his using a ip/mosaic technician iPad and all questions answered. Verbal consent was obtained. Written consent was also obtained with the aid of a ip/mosaic technician. I explained to the patient with the placement of the drain his symptoms should resolve quite quickly and he should be able to go home tonight. I have asked him to contact me with any surgical questions and or concerns and let us know if there is any way we can make his stay here at [facility] more comfortable. 45 minutes of [id number] time spent with the patient, the majority of which was spent in discussion, coordination of care, and completion of the requisite paperwork jia disclaimer: This document was created in part using voice recognition technology. Because of the inherent limitations of the system ([employer] Dictate user manual states that the licensee understands that speech recognition is a statistical process and that recognition errors are inherent in the process), occasional same sounding word substitutions and grammatical errors do occur and persist despite proofreading. Please read this document for context.
[2019-01-04] MEDS ORDERED: LACTATED RINGERS 1,000 ML IV ONE (17:39)
[2019-01-04] MEDS ORDERED: BUPIVACAINE 0.5% PF 10 ML VIAL IM ONE ×2 (18:05)
[2019-01-04] MEDS ORDERED: BUPIVACAINE 0.5% PF 10 ML VIAL ONE ×2 (18:11→18:19)
[2019-01-04] MEDS ORDERED: HYDROmorphone 0.5 MG/0.5 ML SYRINGE IVP PRN (18:45)
[2019-01-04] MEDS ORDERED: HYDROcod/ACETAM 5/325 MG TABLET PO PRN (18:45)
[2019-01-04] MEDS ORDERED: ONDANSETRON 4 MG/2 ML VIAL IVP PRN (18:45)
[2019-01-04] MEDS ORDERED: ROCURONIUM 50 MG/5 ML VIAL IVP ONE (18:54)
[2019-01-04] MEDS ORDERED: PROPOFOL 200 MG/20 ML VIAL IVP ONE (18:54)
[2019-01-04] MEDS ORDERED: fentaNYL 100 MCG/2 ML VIAL IVP ONE (18:54)
[2019-01-04] MEDS ORDERED: ONDANSETRON 4 MG/2 ML VIAL IVP ONE (18:54)
[2019-01-04] MEDS ORDERED: MIDAZOLAM 2 MG/2 ML VIAL IVP ONE (18:54)
--- NOTE | 2019-01-04 18:56 | OPERATIVE REPORT ---
Operative Report - General Procedure Date: 01/04/19 Planned Procedure: Drainage of large symptomatic right upper quadrant biloma Pre-Op Diagnosis: Symptomatic right upper quadrant biloma Procedure Performed: Drainage of large symptomatic right upper quadrant biloma Post Op Diagnosis: Same - Procedure Note Primary Surgeon: Adrián Wray MD Anesthesia Provider: Jigar Sims CRNA Anesthesia Technique: General ET tube IV Fluids (mL): 800 Estimated Blood Loss (mL): 5 Drain/Tube Type: Iggy drain (19 Surinamese Iggy drain placed into large right upper quadrant biloma) Complications: None. - Other Other Information/Narrative: OPERATIVE DESCRIPTION/REPORT: After verbal and written informed consent was obtained detailing the risks of infection, bleeding requiring transfusion with its risks,and and after I met with the patient confirming the surgery, the patient was brought to the operative suite and placed supine on the operating table. Great care was taken to avoid pressure points to prevent pressure necrosis or nerve injury. Monitoring devices were applied. The patient received preoperative antibiotics for surgical prophylaxis. Jigar Sims CRNA sedated and anesthetized the patient for the entire procedure. Ultrasonography was used to help confirm the site of the biloma and this was clearly identified in the right upper quadrant laterally. The previously placed Iggy drain that was ineffective was removed after cutting the suture. The patient was prepped and draped in the usual sterile manner. A "time in" then confirmed that the patient was identified with 3 identifiers (name, date and medical record number), the history and physical was in the chart, the signed consent confirming the procedure was in the chart, the patient was in the correct position, the aforementioned prophylactic measures were in place or given, we had the correct personnel and equipment to complete the procedure and that anesthesia, surgery and nursing were given an opportunity to express any concerns. With the agreement of everyone in the room, we proceeded with the operation. The patient was rotated slightly to their left. The initial incision was lateral and slightly superior to the previous drain incision and dissection down through the muscle layers was completed splitting the muscle. No muscle was cut. The peritoneum and the biloma were clearly seen. A needle was placed into the biloma to confirm what had been seen via ultrasound. Bowel was returned. Allis clamps were placed on either side and in between the Allis clamps were I incised the biloma with a return of 1800 mL of bile. There was no purulence. A 19 Surinamese Iggy drain was then cut to fit and inserted into this opening. The subcutaneous tissues were closed around it using interrupted 2-0 Vicryl sutures. The skin was closed about the tube using a 3-0 nylon suture which was Braeden sandal about the tube. 2 additional mattress sutures were used to approximate the skin. The old drain site was left open to scab over. The surgical count of instruments, needles and sponges was reported as correct twice. Sterile surgical dressings were applied. The patient was then awakened from anesthesia, extubated, and having tolerated the procedure well, was transported to the recovery room. No complications were encountered. A "time out" confirmed the operation performed, the fluids given, the estimated blood loss and anesthesia, surgery and nursing were given an opportunity to express any concerns. MyDoc disclaimer: This document was created in part using voice recognition technology. Because of the inherent limitations of the system ([employer] Dictate user manual states that the licensee understands that speech recognition is a statistical process and that recognition errors are inherent in the process), occasional same sounding word substitutions and grammatical errors do occur and persist despite proofreading. Please read this document for context.
[2019-01-05 05:52] VITALS: BP 115/66
== END 2019-01-05 09:30 | disposition home or self-care (01) ==
LOC: SDS 16:40 → MS2 19:29 → SDS 01-05 09:30
PROVIDERS: ATTEND Surgery
PROC: 0F990ZZ Drainage of Common Bile Duct, Open Approach (ICD-10-PCS; principal; 2019-01-04 17:00)
DX: K91.89 Other postprocedural complications and disorders of digestive system (principal); K83.8 Other specified diseases of biliary tract; Y83.6 Removal of other organ (partial) (total) as the cause of abnormal reaction of the patient, or of later complication, without mention of misadventure at the time of the procedure; Z90.49 Acquired absence of other specified parts of digestive tract
CPT/HCPCS: 47999; J0690; J7120

== ENCOUNTER 2019-01-11 11:04 | Outpatient (CLI) | payer SELFPAY ==
[2019-01-11] MEDS ORDERED: IOVERSOL 320 50 ML VIAL ONE (11:28)
[2019-01-11] MEDS ORDERED: IOVERSOL 320 100 ML VIAL IVP ONE ×2 (11:28→13:07)
[2019-01-11] MEDS ORDERED: IOVERSOL 320 50 ML VIAL PO ONE (13:07)
--- NOTE | 2019-01-11 15:33 | CT Report ---
Reason: CALCULUS OF GALLBLADDER,OTHER SPECIFIED DISEASES O Procedure Date: 01/11/2019 Accession Number: [id number] / [id number] Procedure: CT - Abdomen/Pelvis W CPT Code: FULL RESULT: EXAM: CT ABDOMEN AND PELVIS EXAM DATE: 01/11/2019 12:25 PM. CLINICAL HISTORY: Calculus of gallbladder, other specified diseases. COMPARISONS: MRCP W/WO 01/04/2019 3:01 PM. TECHNIQUE: Routine helical CT imaging was performed through the abdomen and pelvis. IV contrast: OPTI 320 90 mL. Enteric contrast: Yes. Reconstructions: Coronal and sagittal. In accordance with CT protocol optimization, one or more of the following dose reduction techniques were utilized for this exam: automated exposure control, adjustment of mA and/or KV based on patient size, or use of iterative reconstructive technique. FINDINGS: Lung Bases: Unremarkable. Liver: Along the dome of the liver in subdiaphragmatic location is a drain with a thin rim of fluid surrounding the liver, less than 1 cm thick. Separately, a presumably subcapsular biloma measuring 10.3 x 7.0 x 6.9 cm resides in the region of the gallbladder fossa. Liver parenchyma demonstrates a small amount of right intrahepatic biliary ductal dilation and a hepatic hypodensity which is too small to characterize. No left-sided intrahepatic biliary ductal dilation. Gallbladder/Bile Ducts: See above. Status post cholecystectomy. Spleen: Normal. Pancreas: Normal. Adrenal Glands: Normal. Kidneys: The exophytic inferior pole left renal lesion measures 2.8 x 2.7 cm and demonstrates suggestion of enhancement, appearance not compatible with a hemorrhagic cyst. Peritoneal Cavity/Bowel: No bowel obstruction. No free fluid or free air. No lymphadenopathy by size criteria. Pelvic Organs: Normal. The bladder and visualized pelvic organs are within normal limits. Vasculature: No aneurysms or other significant abnormality. Bones: No significant abnormality. Other: None. IMPRESSION: Appropriate response of the previously very large subdiaphragmatic biloma. Interval enlargement of the subcapsular biloma adjacent to the gallbladder fossa. Due to the nature of the communication between the previously dominant subcapsular hepatic collection underneath the diaphragmatic dome and this collection, the subcapsular biloma by the gallbladder fossa will require separate drainage. RADIA
== END 2019-01-11 11:05 | disposition home or self-care (01) ==
LOC: DI 11:04
PROVIDERS: ATTEND Surgery
DX: K83.8 Other specified diseases of biliary tract (principal); K80.20 Calculus of gallbladder without cholecystitis without obstruction
CPT/HCPCS: 74177; Q9967

== ENCOUNTER 2019-01-12 13:10 | Emergency (ER) | payer SELFPAY ==
--- NOTE | 2019-01-12 13:35 | ED Physician Documentation ---
History of Present Illness - Stated complaint Stated Complaint: FEVER/CHEST PX - Chief complaint Chief Complaint: Cardiac - History obtained from History obtained from: Patient - Additonal information Additional information: 68-year-old male with history of cholecystectomy last month that was complicated requiring open surgery and has required PETRA drain placement. Patient has been seen by the ED and surgery several times often for pain control issues. Patient reports that he is taking hydrocodone every 4 hours with minimal pain relief and complains of right upper quadrant, chest, and right shoulder pain. Patient also reports subjective fever and chills, but denies urinary changes, stool changes, nausea, vomiting, SOB. Patient also denies any complications surrounding his wounds. No other improving or worsening factors noted. Review of Systems Constitutional: reports: Fever, Chills Cardiac: reports: Chest pain / pressure Respiratory: denies: Dyspnea GI: reports: Abdominal Pain. denies: Nausea, Vomiting, Constipation, Diarrhea : denies: Dysuria PD PAST MEDICAL HISTORY - Past Medical History Cardiovascular: None Respiratory: None Neuro: None Endocrine/Autoimmune: None GI: None : None HEENT: None Psych: None Musculoskeletal: None Derm: None - Past Surgical History Past Surgical History: No General: Cholecystectomy - Present Medications Home Medications: Ambulatory Orders Medication Instructions Recorded Confirmed RX: Dicyclomine [Bentyl] 10 mg PO QID PRN #20 capsule 12/18/18 12/22/18 RX: Ondansetron Odt [Zofran Odt] 4 mg TL Q6H PRN #10 tablet 12/18/18 12/22/18 RX: HYDROcod/ACETAM 5/325 [[place]ton 1 tab PO Q4HR PRN #20 tablet 12/24/18 5/325] RX: Polyethylene Glycol 3350 17 gm PO DAILY packet 12/24/18 [Miralax] RX: Omeprazole 20 mg PO DAILY #30 capsule. 12/29/18 RX: Oxycodone HCl/Acetaminophen 1 - 2 each PO Q6H PRN #14 tablet 12/29/18 [Percocet 5-325 mg Tablet] HYDROcod/ACETAM 5/325 [[place] 5/325] 1 each PO Q4H #10 tablet 01/04/19 - Allergies Allergies/Adverse Reactions: Allergies Allergy/AdvReac Type Severity Reaction Status Date / Time No Known Drug Allergies Allergy Verified 01/12/19 13:15 - Social History Does the pt smoke?: No Smoking Status: Never smoker Does the pt drink ETOH?: No Does the pt have substance abuse?: No - Immunizations Immunizations are current?: No PD ED PE NORMAL - Vitals Vital signs reviewed: Yes - General General: Alert and oriented X 3, No acute distress - HEENT HEENT: Atraumatic, Moist mucous membranes, Pharynx benign - Neck Neck: Supple, no meningeal sign - Cardiac Cardiac: RRR, No murmur - Respiratory Respiratory: No respiratory distress, Clear bilaterally - Abdomen Abdomen: Normal bowel sounds, Soft, Non tender, Non distended, Other (PETRA drain in place with dark fluid in the bulb.Multiple healing wounds throughout and sutures in place. No signs of abscess, cellulitis, or other complication.) - Derm Derm: Normal color, Warm and dry, No rash - Extremities Extremities: No deformity, No tenderness to palpate - Neuro Neuro: Alert and oriented X 3, No motor deficit, No sensory deficit - Psych Psych: Normal mood, Normal affect Results - Vitals Vitals: Vital Signs - 24 hr 01/12/19 01/12/19 01/12/19 13:12 14:00 15:06 Temperature 37.5 C Heart Rate 100 93 87 Respiratory 18 18 20 Rate Blood Pressure 135/90 H 121/82 H 123/74 O2 Saturation 99 96 94 01/12/19 18:42 Temperature Heart Rate 89 Respiratory 29 H Rate Blood Pressure 131/82 H O2 Saturation 93 Oxygen O2 Source Room air - EKG (time done) 1321 Rate: Rate (enter#) (66) Rhythm: NSR - Labs Labs: Laboratory Tests 01/12/19 01/12/19 01/12/19 13:35 13:35 13:35 WBC 16.3 H RBC 4.31 L Hgb 11.9 L Hct 35.8 L MCV 83.1 MCH 27.6 MCHC 33.2 RDW 13.3 Plt Count 414 MPV 8.6 Neut # (Auto) 13.8 H Lymph # (Auto) 1.0 L Dare # (Auto) 1.2 H Eos # (Auto) 0.0 Baso # (Auto) 0.1 Absolute Nucleated RBC 0.00 Nucleated RBC % 0.0 Sodium 132 L Potassium 3.8 Chloride 98 L Carbon Dioxide 20 L Anion Gap 14.0 H BUN 23 H Creatinine 0.9 Estimated GFR (MDRD) 84 L Glucose 198 H Calcium 8.9 Total Bilirubin 1.3 H AST 41 ALT 68 H Alkaline Phosphatase 339 H Troponin I < 0.04 Total Protein 7.5 Albumin 2.9 L Globulin 4.6 H Albumin/Globulin Ratio 0.6 L Lipase 31 PD MEDICAL DECISION MAKING - ED course Complexity details: reviewed old records, reviewed results, re-evaluated patient, considered differential, d/w patient, d/w family, d/w professional employer consultant ED course: Patient presenting with persistent abdominal discomfort that radiates to his shoulder, likely from his recent cholecystectomy last month. Patient also describe chest discomfort, although feel this is referral pain from his abdominal issues as opposed to PE, pneumonia, ACS, FL, unstable angina, dissection, aneurysm. However, cardiac work-up obtained which returned relatively unremarkable. Screening lab work otherwise showed leukocytosis, as well as elevation in bilirubin and alkaline phosphatase. Reviewed CT imaging performed yesterday which found interval enlargement of the subcapsular biloma adjacent to the gallbladder fossa that would likely require drainage. Discussed patient with general surgery on-call who felt patient would most benefit from transfer given the need for possible GI and IR consult. Spoke with general surgery at [facility] who accepted patient. Patient also amenable to this plan. Patient continued on pain regimen in the ED. Departure - Departure Disposition: 02 Transfer Acute Care Hosp Clinical Impression: Biloma following surgery Discharge Date/Time: 01/12/19 19:10
[2019-01-12] MEDS ORDERED: HYDROmorphone 1 MG/ML CARPUJECT IVP STA ×3 (13:41→19:10)
[2019-01-12] MEDS ORDERED: SODIUM CHLORIDE 0.9% 1,000 ML IV ONE (13:41)
[2019-01-12 13:51] LABS: BASOPHILS # (AUTO) 0.1 10^3/uL (0.0-0.1); BASOPHILS % (AUTO) 0.4 %; HGB - HEMOGLOBIN 11.9 g/dL (14.0-18.0); LYMPHOCYTES % (AUTO) 6.1 %; MEAN CORPUSCULAR HEMOGLOBIN 27.6 pg (27.0-31.0); MEAN CORPUSCULAR HGB CONC 33.2 g/dL (32.0-36.0); MEAN CORPUSCULAR VOLUME 83.1 fL (80.0-94.0); MEAN PLATELET VOLUME 8.6 fL (7.4-11.4); MONOCYTES # (AUTO) 1.2 10^3/uL (0.0-1.0); MONOCYTES % (AUTO) 7.6 %; NEUTROPHILS # (AUTO) 13.8 10^3/uL (1.5-6.6); NEUTROPHILS % (AUTO) 85.1 %; PLT - PLATELET COUNT 414 10^3/uL (130-450); RED BLOOD COUNT 4.31 10^6/uL (4.70-6.10); RED CELL DISTRIBUTION WIDTH 13.3 % (12.0-15.0); WHITE BLOOD COUNT 16.3 x10^3/uL (4.8-10.8)
[2019-01-12 13:58] LABS: ALBUMIN 2.9 g/dL (3.2-5.5); ALBUMIN/GLOBULIN RATIO 0.6 (1.0-2.2); BILIRUBIN,TOTAL 1.3 mg/dL (0.2-1.0); CALCIUM 8.9 mg/dL (8.5-10.3); CREATININE 0.9 mg/dL (0.6-1.2); TOTAL PROTEIN 7.5 g/dL (6.7-8.2)
--- NOTE | 2019-01-12 14:25 | XRAY Report ---
Reason: CP Procedure Date: 01/12/2019 Accession Number: [id number] / [id number] Procedure: XR - Chest 1 View X-Ray CPT Code: 40319 FULL RESULT: EXAM: CHEST RADIOGRAPHY EXAM DATE: 01/12/2019 01:56 PM. CLINICAL HISTORY: CP. COMPARISON: None. TECHNIQUE: 1 view. FINDINGS: Lungs/Pleura: There is right diaphragm elevation. There is right basilar density. The left lung is clear. The upper lung zones are clear. No pneumothorax. Mediastinum: Heart size is normal. Trachea is midline. Other: None. IMPRESSION: 1. Elevated right diaphragm with right basilar atelectasis. RADIA
[2019-01-12 18:43] VITALS: BP 131/82
== END 2019-01-12 19:10 | disposition short-term general hospital (02) ==
LOC: ED 13:10
DX: K91.89 Other postprocedural complications and disorders of digestive system (principal); Z90.49 Acquired absence of other specified parts of digestive tract
CPT/HCPCS: 36415; 71045; 80053; 83690; 84484; 85025; 93005; 96374; 96376; 99284; 99285; J1170

== ENCOUNTER 2020-11-28 13:00 | Outpatient (CLI) | payer SELFPAY | END 2020-11-28 13:01 | disposition critical access hospital (66) | LOC: EMS 13:00 | DX: R51.9 Headache, unspecified (principal); R42 Dizziness and giddiness; R11.2 Nausea with vomiting, unspecified | CPT/HCPCS: A0425; A0427 ==

== ENCOUNTER 2020-11-28 13:14 | Emergency (ER) | payer SELFPAY ==
--- NOTE | 2020-11-28 13:30 | ED Physician Documentation ---
PD HPI FOCAL NEURO - Stated complaint Stated Complaint: SEIZURE - Chief complaint Chief Complaint: Neuro - History obtained from History obtained from: Patient (using [employer] per diem interpreter), Family, EMS - Additional information Additional information: 70-year-old gentleman who is relatively healthy except had a stroke with left- sided facial deficits maybe 8 or 10 years ago and has problems with chronic right upper quadrant pain after complicated cholecystectomy was in his usual state of health until he had a turkey sandwich from the grocery store after lunch. Half an hour later started to feel dizzy and nauseous and then either syncopized or tripped and fell. He was found on the ground with posturing and potential seizure activity. He continues to complain of headache globally, dizziness, and nausea despite getting Zofran on the way here. Review of Systems Ten Systems: 10 systems reviewed and negative Constitutional: reports: Reviewed and negative Ears: reports: Reviewed and negative Nose: reports: Reviewed and negative Throat: reports: Reviewed and negative PD PAST MEDICAL HISTORY - Past Medical History Cardiovascular: None Respiratory: None Neuro: None Endocrine/Autoimmune: None GI: None : None HEENT: None Psych: None Musculoskeletal: None Derm: None - Past Surgical History Past Surgical History: No General: Cholecystectomy - Present Medications Home Medications: Ambulatory Orders Medication Instructions Recorded Confirmed Dicyclomine [Bentyl] 10 mg PO QID PRN #20 capsule 12/18/18 12/22/18 Ondansetron Odt [Zofran Odt] 4 mg TL Q6H PRN #10 tablet 12/18/18 12/22/18 HYDROcod/ACETAM 5/325 [[place] 5/325] 1 tab PO Q4HR PRN #20 tablet 12/24/18 polyethylene glycoL 3350 [Miralax] 17 gm PO DAILY packet 12/24/18 Omeprazole 20 mg PO DAILY #30 capsule. 12/29/18 Oxycodone HCl/Acetaminophen 1 - 2 each PO Q6H PRN #14 tablet 12/29/18 [Percocet 5-325 mg Tablet] HYDROcod/ACETAM 5/325 [[place] 5/325] 1 each PO Q4H #10 tablet 01/04/19 - Allergies Allergies/Adverse Reactions: Allergies Allergy/AdvReac Type Severity Reaction Status Date / Time No Known Drug Allergies Allergy Verified 11/28/20 13:36 - Social History Does the pt smoke?: No Smoking Status: Never smoker Does the pt drink ETOH?: No Does the pt have substance abuse?: No - Immunizations Immunizations are current?: No PD ED PE NORMAL - Vitals Vital signs reviewed: Yes - General General: Alert and oriented X 3, No acute distress - HEENT HEENT: PERRL, EOMI, Ears normal, Moist mucous membranes, Pharynx benign - Neck Neck: Supple, no meningeal sign, No bony TTP - Cardiac Cardiac: RRR, No murmur - Respiratory Respiratory: No respiratory distress, Clear bilaterally - Abdomen Abdomen: Normal bowel sounds, Soft, Non tender - Back Back: No CVA TTP, No spinal TTP - Derm Derm: Normal color, Warm and dry - Extremities Extremities: No edema, No calf tenderness / cord - Neuro Neuro: Alert and oriented X 3, 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, No motor deficit, No sensory deficit, Normal speech Eye Opening: Spontaneous Motor: Obeys Commands Verbal: Oriented GCS Score: 15 Results - Vitals Vitals: Vital Signs - 24 hr 11/28/20 11/28/20 11/28/20 13:20 14:30 15:00 Temperature 36.1 C L Heart Rate 70 60 58 L Respiratory 25 H 18 16 Rate Blood Pressure 164/107 H 152/88 H 150/87 H O2 Saturation 97 95 96 Oxygen O2 Source Room air - EKG (time done) 1355 Rate: Rate (enter#) (53) Rhythm: NSR, LAE QRS: LVH Ischemia: Q waves (inferior) Computer interpretation: Agree with computer - Labs Labs: Laboratory Tests 11/28/20 11/28/20 14:27 14:27 WBC 9.6 RBC 4.25 L Hgb 12.4 L Hct 37.4 L MCV 88.0 MCH 29.2 MCHC 33.2 RDW 14.3 Plt Count 210 MPV 9.9 Neut # (Auto) 7.9 H Lymph # (Auto) 1.1 L Woods # (Auto) 0.4 Eos # (Auto) 0.0 Baso # (Auto) 0.0 Absolute Nucleated RBC 0.00 Nucleated RBC % 0.0 Sodium 137 Potassium 4.3 Chloride 101 Carbon Dioxide 26 Anion Gap 10.0 BUN 32 H Creatinine 0.7 Estimated GFR (MDRD) 112 Glucose 137 H Calcium 8.9 Magnesium 2.2 Total Bilirubin 1.2 H AST 28 ALT 29 Alkaline Phosphatase 86 Total Protein 7.2 Albumin 4.2 Globulin 3.0 Albumin/Globulin Ratio 1.4 Lipase 26 - Rads (name of study) CTA head Radiology: EMP read contemporaneously (Verbal report from radiologist, large subarachnoid hemorrhage with an associated 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 CT was done demonstrating subarachnoid hemorrhage. He was started on a Cleviprex drip and given 1000 mg of Keppra IV load for apparent seizure activity prior to arrival. He was accepted to [facility] for tertiary/specialty care at approximately 3 PM and cobras were completed. Accepting physician there was Lenny Pineda. - Critical Care Time(min): 50 Time Includes: Direct patient care, Review records, Reassess patient, Document care, Coordinate care, Medical consult, Family consult for tx dec Data interpretation: Labs, Pulse ox Procedures included in critical care time: Peripheral IV Departure - Departure Disposition: 02 Transfer Acute Care Hosp Clinical Impression: Subarachnoid bleed, Seizure, Cerebral aneurysm Condition: Critical
[2020-11-28] MEDS ORDERED: IOVERSOL 320 100 ML VIAL IVP ONE ×2 (13:31→15:23)
[2020-11-28] MEDS ORDERED: METOCLOPRAMIDE 10 MG/2 ML VIAL IVP STA (14:01)
[2020-11-28] MEDS ORDERED: levETIRAcetam INJ 1,000 MG in SODIUM CHLORIDE 0.9% 100ML 100 ML IV STA (14:26)
[2020-11-28 14:35] LABS: BASOPHILS % (AUTO) 0.4 %; EOSINOPHILS % (AUTO) 0.4 %; HCT - HEMATOCRIT 37.4 % (42.0-52.0); HGB - HEMOGLOBIN 12.4 g/dL (14.0-18.0); LYMPHOCYTES # (AUTO) 1.1 10^3/uL (1.5-3.5); LYMPHOCYTES % (AUTO) 11.5 %; MEAN CORPUSCULAR HEMOGLOBIN 29.2 pg (27.0-31.0); MEAN CORPUSCULAR HGB CONC 33.2 g/dL (32.0-36.0); MEAN PLATELET VOLUME 9.9 fL (7.4-11.4); MONOCYTES # (AUTO) 0.4 10^3/uL (0.0-1.0); MONOCYTES % (AUTO) 4.3 %; NEUTROPHILS # (AUTO) 7.9 10^3/uL (1.5-6.6); NEUTROPHILS % (AUTO) 82.7 %; PLT - PLATELET COUNT 210 10^3/uL (130-450); RED BLOOD COUNT 4.25 10^6/uL (4.70-6.10); RED CELL DISTRIBUTION WIDTH 14.3 % (12.0-15.0); WHITE BLOOD COUNT 9.6 x10^3/uL (4.8-10.8)
[2020-11-28] MEDS ORDERED: HYDROmorphone 1 MG/ML CARPUJECT IVP STA (14:37)
--- OUTSIDE RECORDS SUMMARY | 2020-11-28 14:45 | EXTERNAL MEDICAL SUMMARY RPT | Continuity of Care Document ---
:1950 Demographics Phone Unavailable Preferred Language Unknown Marital Status Unknown Confucianism Affiliation Unknown Race Unknown Ethnic Group Unknown Author Organization [place] Address [address] [phone] Phone Allergies Encounters Medications Problems Results
[2020-11-28 14:48] LABS: ALBUMIN 4.2 g/dL (3.2-5.5); ALBUMIN/GLOBULIN RATIO 1.4 (1.0-2.2); BILIRUBIN,TOTAL 1.2 mg/dL (0.2-1.0); CALCIUM 8.9 mg/dL (8.5-10.3); CREATININE 0.7 mg/dL (0.6-1.2); MAGNESIUM 2.2 mg/dL (1.7-2.8); POTASSIUM 4.3 mmol/L (3.5-5.0); TOTAL PROTEIN 7.2 g/dL (6.7-8.2)
--- NOTE | 2020-11-28 14:59 | CT Report ---
PROCEDURE: ANGIO NECK W INDICATIONS: seizure, dizzy CONTRAST: IV CONTRAST: Optiray 320 ml: 80 PO CONTRAST: *NO PO CONTRAST TECHNIQUE: After the administration of intravenous contrast, 1.5 mm axial sections acquired from the aortic arch to the [place] of [place]. Coronal 3-D maximum intensity projection (MIP) and/or volume rendering ref ormats were then performed. For radiation dose reduction, the following was used: automated exposur e control, adjustment of mA and/or kV according to patient size. COMPARISON: None. FINDINGS: Image quality: Excellent. Carotid system: The great vessels demonstrate a conventional anatomy as they arise from the aortic a [facility]. The origins of the common carotid arteries appear patent. The common carotid arteries demonstr ate normal calibers and courses. The bifurcation regions appear normal bilaterally. The internal ca rotid arteries demonstrate normal caliber and course. Right middle cerebral artery trifurcation aneur ysm noted described in detail CT angiogram of the head. Posterior circulation: The origins of the vertebral arteries appear patent. The more superior porti ons of the vertebral arteries demonstrate normal course and caliber. They join to form a normal appe aring basilar artery. Soft tissues: Visualized neck soft tissues demonstrate no suspicious abnormalities. The thyroid is normal in size and there are no incidental findings. Bones: No suspicious bony lesions. No spine Visualized cervical spine appears normally aligned. IMPRESSION: 1. No neck large vessel occlusion, vascular stenosis or vascular dissection. 2. Right middle through artery trifurcation aneurysm described in detail on dedicated CT angiogram of the head. The estimate of stenosis included in the report of the imaging study was calculated using the NASCET method Reviewed by: Maine Jaimes MD, PhD on 11/28/2020 2:57 PM PDT Approved by: Maine Jaimes MD, PhD on 11/28/2020 2:57 PM PDT Station ID: [id number]
[2020-11-28] MEDS ORDERED: CLEVIDIPINE BUTYRATE 25 MG/50 ML BOTTLE IV SCH (15:00)
--- NOTE | 2020-11-28 15:00 | CT Report ---
PROCEDURE: Abdomen/Pelvis W INDICATIONS: RUQ pain CONTRAST: IV CONTRAST: Optiray 320 ml: 100 PO CONTRAST: *NO PO CONTRAST TECHNIQUE: After the administration of intravenous contrast, 5 mm thick sections acquired from the diaphragms to the symphysis. 5 mm thick coronal and sagittal reformats were acquired. For radiation dose reducti on, the following was used: automated exposure control, adjustment of mA and/or kV according to minnie ent size. COMPARISON: CT abdomen pelvis 01/11/2019. FINDINGS: Image quality: There is mild motion artifact as well as beam hardening artifact from patient's upper extremity's. ABDOMEN: Lung bases: There is a moderate-sized hiatal hernia with associated medial atelectasis in the lung ba ses. Heart size is enlarged. Solid organs: There is mild biliary ductal dilatation within the anterior right hepatic lobe which a ppears similar to the prior study. A small cyst is also redemonstrated in the anterior right hepatic dome. Gallbladder is surgically absent. The spleen is normal in size. Pancreas enhances normally with out peripancreatic fat stranding or fluid collections. No adrenal nodules. Kidneys demonstrate no h ydronephrosis. There is a small cortical cyst redemonstrated within the right kidney. There is contra st within the renal collecting systems bilaterally from patient's recent head and neck CT angiogram. Peritoneum and bowel: Small bowel loops demonstrate normal wall thickness and caliber. There is mild segmental wall thickening of the proximal transverse colon with associated mild pericolonic fat stra nding suggestive of a mild colitis. There is colonic diverticulosis without acute diverticular coliti s. No free fluid or air. Nodes and vessels: No retroperitoneal or mesenteric adenopathy by size criteria. Aorta and inferior vena cava are normal in size. Miscellaneous: No ventral hernias. PELVIS: Genitourinary: Bladder wall thickness is normal. There is heterogeneous enlargement of the prostate. Miscellaneous: No inguinal hernias or adenopathy. Bones: No suspicious bony lesions. No vertebral body compression fractures. IMPRESSION: 1. Mild segmental clonic wall thickening in the proximal transverse colon likely represents a mild in fectious or inflammatory colitis. 2. Mild intrahepatic biliary ductal dilatation involving the anterior right hepatic lobe appears kit lar to the prior study. The findings may reflect possible scarring or stricture and less likely an ob structing mass lesion given similar appearance over time. Recommend correlation with laboratory value s. 3. Colonic diverticulosis without acute diverticulitis. Reviewed by: Joel Novoa MD on 11/28/2020 2:58 PM PDT Approved by: Joel Novoa MD on 11/28/2020 2:58 PM PDT Station ID: [id number]
--- NOTE | 2020-11-28 15:00 | CT Report ---
PROCEDURE: ANGIO HEAD W/WO INDICATIONS: seizure, dizzy CONTRAST: IV CONTRAST: Optiray 320 ml: 80 PO CONTRAST: *NO PO CONTRAST TECHNIQUE: Precontrast 4.5 mm thick angled axial sections acquired from the foramen magnum to the vertex. Afte r the administration of intravenous contrast, 1 mm thick sections acquired through the [place] of [place] is. Postcontrast 4.5 mm thick sections then re-acquired from the foramen magnum to the vertex. 3-di mensional pbavvbd-awtaxcphx-zottjaalrf (MIP) and/or volume rendering reformats were acquired of the c entral intracranial vasculature. For radiation dose reduction, the following was used: automated ex posure control, adjustment of mA and/or kV according to patient size. COMPARISON: FINDINGS: Image quality: Excellent. Anterior circulation: Intracranial internal carotid arteries are normal in size and flow. The flow within the paired anterior cerebral arteries is normal and symmetric. The flow within the middle cer ebral arteries is normal and symmetric. The anterior communicating artery is seen. There is a 5 mm x 5 mm x 7 mm bilobed cerebral aneurysm involving the right middle cerebral artery trifurcation. Posterior circulation: Visualized portions of the vertebral arteries demonstrate normal caliber, and join to form a normal appearing basilar artery. Flow within the posterior cerebral arteries is norm al and symmetric. No aneurysms are seen. Dural sinuses demonstrate normal postcontrast enhancement. CSF spaces: Ventricles are normal in size and shape. Basal cisterns are patent. No extra-axial flu id collections. Brain: Extensive subarachnoid hemorrhage involving the frontal and parietal cerebral convexities, th e sylvian fissures, the frontal interhemispheric fissure, the suprasellar cistern and the basilar cis terns. No midline shift. No intracranial masses. Avalos-white matter interface appears intact. Skull and face: Calvarium and facial bones appear intact, without suspicious lesions. Sinuses: Visualized sinuses and mastoids are clear. IMPRESSION: 1. 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 2. Extensive subarachnoid hemorrhage likely related to cerebral aneurysm rupture. Results phoned to the emergency room physician Dr. Duval on 11/27/2020 at 1455 hours. Reviewed by: Maine Jaimes MD, PhD on 11/28/2020 2:59 PM PDT Approved by: Maine Jaimes MD, PhD on 11/28/2020 2:59 PM PDT Station ID: [id number]
[2020-11-28 15:03] VITALS: BP 150/87
[2020-11-28 15:31] LABS: INR 1.1 (0.8-1.2); PT - PROTHROMBIN TIME 12.5 secs (9.9-12.6)
[2020-11-28 16:02] LABS: B. PARAPERTUSSIS- RESP PCR PAN NOT DETECTED; B. PERTUSSIS- RESP PCR PANEL NOT DETECTED; C. PNEUMONIAE- RESP PCR PANEL NOT DETECTED; CORONAVIRUS 229E-RESP PCR NOT DETECTED; CORONAVIRUS HKU1-RESP PCR NOT DETECTED; CORONAVIRUS NL63-RESP PCR NOT DETECTED; CORONAVIRUS OC43-RESP PCR NOT DETECTED; HUMAN METAPNEUMOVIRUS NOT DETECTED; INFLUENZA A- RESP PCR PANEL NOT DETECTED; INFLUENZA B - RESP PCR PANEL NOT DETECTED; M. PNEUMONIAE- RESP PCR PANEL NOT DETECTED; PARAINFLUENZA VIRUS 1 NOT DETECTED; PARAINFLUENZA VIRUS 2 NOT DETECTED; PARAINFLUENZA VIRUS 3 NOT DETECTED; PARAINFLUENZA VIRUS 4 NOT DETECTED; RHINOVIRUS/ENTEROVIRUS NOT DETECTED; RSV- RESP PCR PANEL NOT DETECTED; SARS-CoV-2 -RESP PCR PANEL NOT DETECTED
== END 2020-11-28 15:15 | disposition short-term general hospital (02) ==
LOC: EDUNIT# → ED 13:14
DX: I60.9 Nontraumatic subarachnoid hemorrhage, unspecified (principal); I67.1 Cerebral aneurysm, nonruptured; Z20.822 Contact with and (suspected) exposure to COVID-19
CPT/HCPCS: 0202U; 36415; 70496; 70498; 74177; 80053; 83690; 83735; 85025; 85610; 93005; 96374; 96375; 99285; 99291; C9248; J1170; J2765; Q9967